=== PATIENT | male | born 1945 | race Caucasian/White ===

== ENCOUNTER 2016-10-27 16:18 | Inpatient (IN) | payer BC, MEDICARE ==
[2016-10-27] MEDS ORDERED: HEPARIN SODIUM,PORCINE/D5W PMX 25,000 UNIT in DEXTROSE/WATER 1 500ML.BAG IV ONE (16:28)
[2016-10-27] MEDS ORDERED: DILTIAZEM 125 MG in SODIUM CHLORIDE 0.9% 100 ML IV ONE (16:28)
--- NOTE | 2016-10-27 16:56 | ED ---
Arrhythmia/Palpitations HPI - General Chief Complaint: Arrhythmia/Palpitations Stated Complaint: afib, transfer anupama moore Time Seen by Provider: 10/27/16 16:27 Source: patient Mode of arrival: EMS Limitations: no limitations - History of Present Illness Initial Comments: This is a 71-year-old male with a history of chronic alcohol use and strong family history for CAD who presents to the department for an episode of nausea, lightheadedness, and chest tightness. He states that he was in his car when it occurred. He went to [facility] emergency department who evaluated him and found to be in atrial fibrillation with RVR. He was started on Cardizem and heparin area he was sent here for higher level of care. The patient denies a history of heart disease. He does state that he had 2 brothers to from heart attacks under the age of 50. He states that he currently feels back to normal. No lightheadedness or chest pain currently. No other complaints. The patient does of note drink one pint of alcohol a day. - Related Data Home Medications Medication Instructions Recorded Confirmed Ascorbic Acid [Vitamin C] 1,000 mg PO DAILY 10/19/14 10/27/16 Esomeprazole Magnesium [NexIUM] 40 mg PO DAILY 10/19/14 10/27/16 Gabapentin [Neurontin] 300 mg PO BID 10/19/14 10/27/16 Multivitamin [Men's Multi-Vitamin] 1 tab PO DAILY 10/19/14 10/27/16 DULoxetine HCL [Cymbalta] 60 mg PO DAILY 10/27/16 10/27/16 Diazepam [Valium] 2 mg PO Q6H PRN 10/27/16 10/27/16 Polyethylene Glycol 3350 [Miralax] 17 gm PO DAILY 10/27/16 10/27/16 Seroquel (Unknown Dose) 1 tab PO HS 10/27/16 10/27/16 Allergies Allergy/AdvReac Type Severity Reaction Status Date / Time No Known Allergies Allergy Verified 10/27/16 16:43 Review of Systems ROS Statement: Those systems with pertinent positive or pertinent negative responses have been documented in the HPI. ROS Other: All systems not noted in ROS Statement are negative. Past Medical History Past Medical History: GERD/Reflux, Neurologic Disorder, Osteoarthritis (OA), Pneumonia, Prostate Disorder Additional Past Medical History / Comment(s): neuropathy, BLEDDING ULCER IN PAST ,ALCOHOL ABUSE/PAST DT'S History of Any Multi-Drug Resistant Organisms: None Reported Past Surgical History: Back Surgery, Orthopedic Surgery Additional Past Surgical History / Comment(s): pain procedures, neck, back and shoulder surg. many complications after surgery -(surgury itself went well . afterwards - SEPSIS E. Coli in blood, urine and sputum; family stated pt ended up on vent. transferred to [facility] ICU Past Anesthesia/Blood Transfusion Reactions: No Reported Reaction Additional Past Anesthesia/Blood Transfusion Reaction / Comment(s): blood transfusion -no reactions to it Past Psychological History: Anxiety, Depression Smoking Status: Former smoker Past Alcohol Use History: Abuse, Daily Past Drug Use History: None Reported - Past Family History Brother(s) Family Medical History: Myocardial Infarction ([place]) Additional Family Medical History / Comment(s): 2 btothers from mi's Mother Family Medical History: Diabetes Mellitus Additional Family Medical History / Comment(s): controlled diabetic Father Family Medical History: Myocardial Infarction ([place]), Sleep Apnea/CPAP/BIPAP General Exam - General Exam Comments Initial Comments: Constitutional: Awake alert Appears comfortable Head: Normocephalic atraumatic Eyes: no conjunctival injection No scleral icterus EOMI Neck: No JVD Supple Heart: Regular rate rhythm normal S1-S2 no murmurs Lungs: Clear to auscultation bilaterally No wheezing No rales Abdomen: Soft nondistended nontender Extremities: Non edematous DP pulses intact Radial pulses intact Neuro: A&Ox3 No focal neurologic deficits Psych: Appropriate mood and affect Limitations: no limitations Course Vital Signs 10/27/16 16:22 Temperature 97.1 F L Pulse Rate 79 Respiratory 18 Rate Blood Pressure 109/74 O2 Sat by Pulse 98 Oximetry EKG Findings - EKG Comments: EKG Findings:: EKG showing normal sinus rhythm with a rate of 73. No abnormal ST segment changes or T-wave inversions. QTC 416. Other intervals normal. No ectopy. Medical Decision Making - Medical Decision Making This is a 71-year-old male who is transferred to the ER for A. fib RVR. The patient spontaneously converted. We'll keep him on heparin drip. He does have a strong family history for CAD so I like to be evaluated for this. I suspect that the etiology of his atrial tachycardia is from his alcohol use. Dr. Arredondo accepts the admission. The patient is currently stable for transfer to the floor. Disposition Clinical Impression: Atrial flutter, Unstable angina Disposition: ADMITTED IP TO THIS HOSP Condition: Stable Referrals: Vishnu Blackwell MD [Primary Care Provider] - 1-2 days
[2016-10-27] MEDS ORDERED: NITROGLYCERIN SL TABS 0.4 MG TAB SUBLINGUAL PRN (17:00)
[2016-10-27] MEDS ORDERED: LORazepam 2 MG/ML SYRINGE IV PRN ×3 (17:03)
[2016-10-27] MEDS ORDERED: THIAMINE 100 MG/ML 2 ML VIAL IM STA (17:03)
[2016-10-27] MEDS ORDERED: HEPARIN SODIUM,PORCINE/D5W PMX 25,000 UNIT in DEXTROSE/WATER 1 500ML.BAG IV SCH (17:30)
[2016-10-27 20:44] LABS: Creatine Kinase MB 0.7 ng/mL (0.0-2.4); Troponin I <0.012 ng/mL (0.000-0.034)
[2016-10-27 20:55] VITALS: BMI 24.3
[2016-10-27] MEDS: MELATONIN 5 MG TABLET PO SCH (22:08)
[2016-10-27] MEDS: QUEtiapine 25 MG TAB PO SCH (22:08)
[2016-10-28 02:14] LABS: Creatine Kinase 91 U/L (55-170)
[2016-10-28 02:17] LABS: Cholesterol 156 mg/dL (<200); HDL Cholesterol 80 mg/dL (40-60)
[2016-10-28 02:26] LABS: Creatine Kinase MB 0.6 ng/mL (0.0-2.4); Troponin I <0.012 ng/mL (0.000-0.034)
[2016-10-28 08:09] LABS: Creatine Kinase 75 U/L (55-170)
[2016-10-28 08:21] LABS: Creatine Kinase MB 0.6 ng/mL (0.0-2.4); Troponin I <0.012 ng/mL (0.000-0.034)
[2016-10-28] MEDS ORDERED: ASPIRIN 325 MG TAB PO SCH (09:00)
--- NOTE | 2016-10-28 09:04 | P.CRDCN ---
History of Present Illness Consult date: 10/28/16 Requesting physician: Janeth Downing Consult reason: chest pain Chief complaint: Dizziness and chest pain History of present illness: This is a 71-year-old gentleman with no prior documented history of hypertension, no diabetes, no hyperlipidemia, prior history of smoking, strong family history of premature coronary artery disease, EtOH use, patient states he drinks approximately a pint of alcohol a day and has done so for several years, he underwent a cardiac catheterization in September 2015 which did not reveal any obstructive coronary artery disease. Patient was on vacation up [place], states that he had driven approximately a 2-1/2 hours when he developed a midsternal chest discomfort which he describes as a pressure sensation that radiated across his chest, patient states that he then became extremely dizzy and his vision became unclear, he was mildly short of breath. Denies any diaphoresis or nausea. He pulled over to the side of the road, his and drove car and went directly to [facility]. Ekg performed on admission there showed a supraventricular tachycardia with a heart rate of 150. Blood pressure on arrival there 108/82, oxygen saturation 98% on room air. Troponin negative. CBC normal. Potassium 3.9, BUN 22, creatinine 1.0. EKG performed on arrival here showed a normal sinus rhythm with no acute changes. Troponins negative 3. Blood pressure 101/60 heart rate in the 70s temperature 97.1. At the time of my examination this morning, patient denies any chest discomfort, states he has mild dizziness when he takes a deep breath otherwise asymptomatic. Past Medical History Past Medical History: GERD/Reflux, Neurologic Disorder, Osteoarthritis (OA), Pneumonia, Prostate Disorder Additional Past Medical History / Comment(s): neuropathy, BLEEDING ULCER IN PAST ,ALCOHOL ABUSE/PAST DT'S History of Any Multi-Drug Resistant Organisms: None Reported Past Surgical History: Back Surgery, Orthopedic Surgery Additional Past Surgical History / Comment(s): pain procedures, neck, back and shoulder surg. many complications after surgery -(surgury itself went well . afterwards - SEPSIS E. Coli in blood, urine and sputum; family stated pt ended up on vent. transferred to [facility] ICU Past Anesthesia/Blood Transfusion Reactions: No Reported Reaction Additional Past Anesthesia/Blood Transfusion Reaction / Comment(s): blood transfusion -no reactions to it Past Psychological History: Anxiety, Depression Smoking Status: Former smoker Past Alcohol Use History: Abuse, Daily Additional Past Alcohol Use History / Comment(s): Quit smoking 30 yrs. ago. Smoked 1 PPD.admits to drinking a pint of vodka per day. Past Drug Use History: None Reported - Past Family History Brother(s) Family Medical History: Myocardial Infarction ([place]) Additional Family Medical History / Comment(s): 2 btothers from mi's Mother Family Medical History: Diabetes Mellitus Additional Family Medical History / Comment(s): controlled diabetic Father Family Medical History: Myocardial Infarction ([place]), Sleep Apnea/CPAP/BIPAP Medications and Allergies Home Medications Medication Instructions Recorded Confirmed Type Ascorbic Acid [Vitamin C] 1,000 mg PO DAILY 10/19/14 10/27/16 History Esomeprazole Magnesium [NexIUM] 40 mg PO DAILY 10/19/14 10/27/16 History Gabapentin [Neurontin] 300 mg PO TID 10/19/14 10/27/16 History Multivitamin [Men's Multi-Vitamin] 1 tab PO DAILY 10/19/14 10/27/16 History DULoxetine HCL [Cymbalta] 60 mg PO DAILY 10/27/16 10/27/16 History Diazepam [Valium] 2 mg PO Q6H PRN 10/27/16 10/27/16 History Naproxen 500 mg PO BID 10/27/16 10/27/16 History Polyethylene Glycol 3350 [Miralax] 17 gm PO DAILY 10/27/16 10/27/16 History QUEtiapine [SEROquel] 25 mg PO HS 10/27/16 10/27/16 History Allergies Allergy/AdvReac Type Severity Reaction Status Date / Time No Known Allergies Allergy Verified 10/27/16 16:43 Physical Exam Vitals: Vital Signs Temp Pulse Pulse Resp BP BP Pulse Ox 10/28/16 08:00 97.1 F L 72 18 101/64 98 10/28/16 04:00 96.5 F L 66 18 93/58 97 10/28/16 00:00 97.2 F L 72 18 92/59 100 10/27/16 20:44 96.8 F L 98 18 105/65 100 10/27/16 18:22 98.3 F 70 16 95/60 98 10/27/16 17:48 98.3 F 70 16 98/58 98 10/27/16 17:46 98.1 F 69 18 93/58 97 10/27/16 17:00 99 F 72 20 95/61 98 10/27/16 16:22 97.1 F L 79 18 109/74 98 Intake and Output 10/27/16 10/28/16 10/28/16 22:59 06:59 14:59 Intake Total 0.5 128 Balance 0.5 128 Intake: IV 128 Heparin Sodium,Porcine/ 128 D5w Pmx 25,000 unit In Dextrose/Water 1 500ml. bag @ 12 UNITS/KG/HR 16. 32 mls/hr IV .Q24H JAD[facility] Rx #:[id number] Intake, IV Titration 0.5 Amount Diltiazem 125 mg In 0.5 Sodium Chloride 0.9% 100 ml @ 10 MG/HR 10 mls/hr IV .[id number] ONE Rx#: [id number] Other: Voiding Method Toilet Toilet # Voids 2 Weight 70.307 kg 73.6 kg PHYSICAL EXAMINATION: HEENT: [Head is atraumatic, normocephalic. Pupils equal, round. Neck is supple. There is no elevated jugular venous pressure.] HEART EXAMINATION: [Heart S1, S2 normal. No murmur or gallop heard.] CHEST EXAMINATION:[ Lungs are clear to auscultation and precussion. No chest wall tenderness is noted on palpation or with deep breathing.] ABDOMEN: [ Soft, nontender. Bowel sounds are heard. No organomegaly noted]. EXTREMITIES:[ 2+ peripheral pulses with no evidence of peripheral edema and no calf tenderness noted]. NEUROLOGIC [patient is awake, alert and oriented -3.] . Results Cardiac Enzymes 10/27/16 10/28/16 10/28/16 Range/Units 19:53 01:39 07:08 CK-MB (CK-2) 0.7 0.6 0.6 (0.0-2.4) ng/mL Troponin I <0.012 <0.012 <0.012 (0.000-0.034) ng/mL Coagulation 10/27/16 10/28/16 Range/Units 19:53 07:08 APTT 51.4 H 46.5 H (22.0-30.0) sec Lipids 10/28/16 Range/Units 01:39 Triglycerides 50 (<150) mg/dL Cholesterol 156 (<200) mg/dL HDL Cholesterol 80 H (40-60) mg/dL Current Medications Generic Name Dose Route Start Last Admin Trade Name Rosa PRN Reason Stop Dose Admin Aspirin 325 mg 10/28/16 09:00 Aspirin PO DAILY JADEN Heparin Sodium/Dextrose 25,000 500 mls @ 16.32 mls/hr 10/27/16 17:30 20:38 unit/ IV Solution IV 12 units/kg/hr .Q24H JADEN 16.32 mls/hr Protocol Administration 12 UNITS/KG/HR Lorazepam 1 mg 10/27/16 17:03 Ativan IV Q2HR PRN CIWA 8 or 9 Lorazepam 1 mg 10/27/16 17:03 Ativan IV Q1HR PRN CIWA 10 to 15 Lorazepam 2 mg 10/27/16 17:03 Ativan IV 10/29/16 17:03 Q10M PRN CIWA 16 or higher Melatonin 5 mg 10/27/16 21:30 10/27/16 22:08 Melatonin PO 5 mg HS JADEN Administration Nitroglycerin 0.4 mg 10/27/16 17:00 Nitrostat SUBLINGUAL Q5M PRN Chest Pain Quetiapine Fumarate 25 mg 10/27/16 21:30 10/27/16 22:08 Seroquel PO 25 mg HS JADEN Administration Thiamine HCl 100 mg 10/28/16 12:00 Vitamin B-1 PO BID@1200,1700 JADEN Intake and Output 10/27/16 10/28/16 10/28/16 22:59 06:59 14:59 Intake Total 0.5 128 Balance 0.5 128 Intake: IV 128 Heparin Sodium,Porcine/ 128 D5w Pmx 25,000 unit In Dextrose/Water 1 500ml. bag @ 12 UNITS/KG/HR 16. 32 mls/hr IV .Q24H [facility] Rx #:[id number] Intake, IV Titration 0.5 Amount Diltiazem 125 mg In 0.5 Sodium Chloride 0.9% 100 ml @ 10 MG/HR 10 mls/hr IV .[id number] ONE Rx#: [id number] Other: Voiding Method Toilet Toilet # Voids 2 Weight 70.307 kg 73.6 kg EKG Interpretations (text) Initial EKG showed a supraventricular tachycardia with a heart rate in the 140s to 150s. EKG this morning shows normal sinus rhythm with no acute changes. Assessment and Plan Plan: Assessment and plan #1 symptoms of chest discomfort with associated dizziness, atypical for acute coronary syndrome. Cardiac catheterization performed one year ago did not reveal any obstructive coronary artery disease. Troponins negative 4. #2 supraventricular tachycardia, patient now in normal sinus rhythm. #3 EtOH use, patient drinks 1 pint of alcohol per day. #4 strong family history of premature coronary artery disease in his brothers. #5 cardiac risk factors negative for hypertension, no diabetes, no hyperlipidemia. Plan We will obtain an echocardiogram with Doppler study. We will also request a free T4 and TSH level be obtained. We will also get a d-dimer and magnesium level. Obtain fasting lipid profile. Further recommendations will be based on these findings and patient's clinical course. DNP note has been reviewed, I agree with a documented findings and plan of care. Patient was seen and examined.
--- NOTE | 2016-10-28 10:51 | P.HPIM ---
History of Present Illness H&P Date: 10/28/16 Chief Complaint: chest pain/SVT. This is a 71-year-old gentleman one of Dr. Blackwell with no prior documented history of hypertension, no diabetes, no hyperlipidemia, prior history of smoking, strong family history of premature coronary artery disease, EtOH use, patient states he drinks approximately a pint of alcohol a day and has done so for several years, he underwent a cardiac catheterization in September 2015 which did not reveal any obstructive coronary artery disease. Patient was on vacation up [place], states that he had driven approximately a 2-1/2 hours when he developed a midsternal chest discomfort which he describes as a pressure sensation that radiated across his chest, patient states that he then became extremely dizzy and his vision became unclear, he was mildly short of breath. Denies any diaphoresis or nausea. He pulled over to the side of the road, his and drove car and went directly to [facility]. Ekg performed on admission there showed a supraventricular tachycardia with a heart rate of 150. Blood pressure on arrival there 108/82, oxygen saturation 98% on room air. Troponin negative. CBC normal. Potassium 3.9, BUN 22, creatinine 1.0. EKG performed on arrival here showed a normal sinus rhythm with no acute changes. Troponins negative 3. Review of Systems Constitutional: Denies anorexia, Denies chronic headaches, Denies fever, Denies lethargy, Denies weight gain, Denies weight loss Eyes: denies blurred vision, denies bulging eye, denies decreased vision, denies diplopia Ears: deny: decreased hearing Ears, nose, mouth and throat: Denies dysphagia, Denies neck lump, Denies swelling in throat, Denies sore throat, Denies vertigo, Denies voice changes Cardiovascular: Reports chest pain, Reports decreased exercise tolerance, Reports shortness of breath, Denies high blood pressure, Denies irregular heart beat, Denies paroxysmal nocturnal dyspnea, Denies rapid heart beat, Denies syncope Respiratory: Denies congestion, Denies cough, Denies cough with sputum, Denies home oxygen, Denies sleep apnea, Denies snoring, Denies wheezing Gastrointestinal: Denies abdominal pain, Denies bloating, Denies BRBPR, Denies early satiety, Denies loss of appetite, Denies melena, Denies nausea, Denies vomiting Genitourinary: Denies dysuria, Denies nocturia, Denies polyuria Musculoskeletal: Denies myalgias Musculoskeletal: absent: ankle pain, ankle stiffness, ankle swelling, elbow pain , elbow stiffness, elbow swelling, foot pain, foot stiffness, foot swelling, hand pain, hand stiffness, hand swelling, hip pain, hip stiffness, hip swelling , knee pain, knee stiffness, knee swelling, shoulder pain, shoulder stiffness, shoulder swelling, wrist pain, wrist stiffness, wrist swelling Integumentary: Denies pruritus, Denies rash Neurological: Denies numbness, Denies weakness Psychiatric: Denies anxiety, Denies depression Endocrine: Denies fatigue, Denies weight change Past Medical History Past Medical History: GERD/Reflux, Hyperlipidemia, Neurologic Disorder, Osteoarthritis (OA), Pneumonia, Prostate Disorder Additional Past Medical History / Comment(s): neuropathy, BLEEDING ULCER IN PAST ,ALCOHOL ABUSE/PAST DT'S History of Any Multi-Drug Resistant Organisms: None Reported Past Surgical History: Back Surgery, Orthopedic Surgery Additional Past Surgical History / Comment(s): pain procedures, neck, back and shoulder surg. many complications after surgery -(surgury itself went well . afterwards - SEPSIS E. Coli in blood, urine and sputum; family stated pt ended up on vent. transferred to [facility] ICU Past Anesthesia/Blood Transfusion Reactions: No Reported Reaction Additional Past Anesthesia/Blood Transfusion Reaction / Comment(s): blood transfusion -no reactions to it Past Psychological History: Anxiety, Depression Smoking Status: Former smoker Past Alcohol Use History: Abuse, Daily Additional Past Alcohol Use History / Comment(s): Quit smoking 30 yrs. ago. Smoked 1 PPD.admits to drinking a pint of vodka per day. Past Drug Use History: None Reported - Past Family History Brother(s) Family Medical History: Myocardial Infarction ([place]) Additional Family Medical History / Comment(s): 2 btothers from mi's Mother Family Medical History: Diabetes Mellitus (mother at age of 96 and she had diabetes mellitus type 2.) Additional Family Medical History / Comment(s): controlled diabetic Father Family Medical History: Myocardial Infarction ([place]) (father in his early 60s from [place] Sleep Apnea/CPAP/BIPAP Son(s) Family Medical History: No Reported History (patient has one son no major medical problems.) Daughter(s) Family Medical History: No Reported History (patient has 3 daughters no major medical problems.) Medications and Allergies Home Medications Medication Instructions Recorded Confirmed Type Ascorbic Acid [Vitamin C] 1,000 mg PO DAILY 10/19/14 10/27/16 History Esomeprazole Magnesium [NexIUM] 40 mg PO DAILY 10/19/14 10/27/16 History Gabapentin [Neurontin] 300 mg PO TID 10/19/14 10/27/16 History Multivitamin [Men's Multi-Vitamin] 1 tab PO DAILY 10/19/14 10/27/16 History DULoxetine HCL [Cymbalta] 60 mg PO DAILY 10/27/16 10/27/16 History Diazepam [Valium] 2 mg PO Q6H PRN 10/27/16 10/27/16 History Naproxen 500 mg PO BID 10/27/16 10/27/16 History Polyethylene Glycol 3350 [Miralax] 17 gm PO DAILY 10/27/16 10/27/16 History QUEtiapine [SEROquel] 25 mg PO HS 10/27/16 10/27/16 History Allergies Allergy/AdvReac Type Severity Reaction Status Date / Time No Known Allergies Allergy Verified 10/27/16 16:43 Physical Exam Vitals: Vital Signs Temp Pulse Pulse Resp BP BP Pulse Ox 10/28/16 08:00 97.1 F L 72 18 101/64 98 10/28/16 04:00 96.5 F L 66 18 93/58 97 10/28/16 00:00 97.2 F L 72 18 92/59 100 10/27/16 20:44 96.8 F L 98 18 105/65 100 10/27/16 18:22 98.3 F 70 16 95/60 98 10/27/16 17:48 98.3 F 70 16 98/58 98 10/27/16 17:46 98.1 F 69 18 93/58 97 10/27/16 17:00 99 F 72 20 95/61 98 10/27/16 16:22 97.1 F L 79 18 109/74 98 Intake and Output 10/27/16 10/28/16 10/28/16 22:59 06:59 14:59 Intake Total 0.5 128 Balance 0.5 128 Intake: IV 128 Heparin Sodium,Porcine/ 128 D5w Pmx 25,000 unit In Dextrose/Water 1 500ml. bag @ 12 UNITS/KG/HR 16. 32 mls/hr IV .Q24H [facility] Rx #:[id number] Intake, IV Titration 0.5 Amount Diltiazem 125 mg In 0.5 Sodium Chloride 0.9% 100 ml @ 10 MG/HR 10 mls/hr IV .[id number] ONE Rx#: [id number] Other: Voiding Method Toilet Toilet # Voids 2 Weight 70.307 kg 73.6 kg - Constitutional General appearance: average body habitus, no acute distress - EENT Eyes: anicteric sclerae, EOMI, PERRLA, no ptosis, no scleral icterus, no normal appearance ENT: hearing grossly normal, NA/AT, normal oropharynx, no thrush Ears: bilateral: normal - Neck Neck: no lymphadenopathy, normal ROM, no rigidity, no stridor, no thyromegaly Carotids: bilateral: upstroke normal Thyroid: bilateral: normal size - Respiratory Respiratory: bilateral: diminished, negative: dullness, rales, rhonchi, wheezing , prolonged expiration - Cardiovascular Rhythm: regular Heart sounds: normal: S1, S2 Abnormal Heart Sounds: systolic murmur, no S3 Gallop, no S4 Gallop, no click - Gastrointestinal General gastrointestinal: normal bowel sounds, soft, no splenomegaly, no tenderness, no umbilical hernia, no ventral hernia - Integumentary Integumentary: normal, normal turgor - Neurologic Neurologic: CNII-XII intact - Musculoskeletal Musculoskeletal: gait normal, strength equal bilaterally - Psychiatric Psychiatric: A&O x's 3, appropriate affect, intact judgment & insight Results Labs: Abnormal Lab Results - Last 24 Hours (Table) 10/27/16 10/28/16 10/28/16 Range/Units 19:53 01:39 07:08 APTT 51.4 H 46.5 H (22.0-30.0) sec HDL Cholesterol 80 H (40-60) mg/dL Thrombosis Risk Factor Assmnt - DVT/VTE Prophylaxis DVT/VTE Prophylaxis: Pharmacologic Prophylaxis ordered, Mechanical Prophylaxis ordered - Choose All That Apply Each Risk Factor Represents 2 Points: Age 61-74 years Thrombosis Risk Factor Assessment Total Risk Factor Score: 2 Thrombosis Risk Factor Assessment Level: Low Risk Assessment and Plan Plan: Assessment and plan: 1. Chest pain does not appear to be cardiac, this is was triggered with supraventricular tachycardia episode, patient was admitted to the hospital his currently on heparin drip this would be discontinued, patient would be seen in consultation by Neurology, echocardiogram will be done for evaluation of LV function, patient underwent left heart catheterization September 2015 that showed no evidence of coronary artery disease. 2. History of septic shock due to E. coli in the past post spinal surgery with a prolonged hospital stay at [facility]. 3. Chronic alcohol use and dependence. The patient drinks about a pint a daily basis for a long time and he has gone through DTs in the past. We will monitor the patient for delirium tremens, he will be placed on CIWA protocol. 4. GERD with esophagitis and a prior history of peptic ulcer disease. Continue Nexium 40 mg orally once every day. 5. Alcohol-induced neuropathy. Continue gabapentin 300 mg orally 3 times every day. 6. Insomnia. Continue Seroquel 25 mg at bedtime. 7. Constipation. Continue MiraLAX 17 g in 8 ounces water once every day. 8. DVT prophylaxis. Discontinue heparin drip, start the patient Lovenox 40 mg subcutaneously every 24 hours. 9. GI prophylaxis. Currently on PPI. 10. Admitted to inpatient. Estimate a length of stay 2 midnights. 11. Patient is full code.
[2016-10-28] MEDS: THIAMINE 100 MG TAB PO SCH ×2 (11:55→18:39)
--- NOTE | 2016-10-28 15:25 | ECHOF ---
Referral Reason:chest pain MEASUREMENTS -------- HEIGHT: 170.2 cm WEIGHT: 73.5 kg BP: 120/40 IVSd: 1.3 cm (0.6 - 1.1) LVIDd: 3.3 cm (3.9 - 5.3) LVPWd: 0.8 cm (0.6 - 1.1) IVSs: 1.5 cm LVIDs: 2.9 cm LVPWs: 1.0 cm LA Diam: 3.3 cm (2.7 - 3.8) Ao Diam: 3.5 cm (2.0 - 3.7) AV Cusp: 1.9 cm (1.5 - 2.6) LA Diam: 3.3 cm (2.7 - 3.8) MV EXCURSION: 21.150 mm (> 18.000) MV EF SLOPE: 66 mm/s (70 - 150) EPSS: 0.2 cm MV E Dioni: 0.65 m/s MV DecT: 159 ms MV A Dioni: 0.60 m/s MV E/A Ratio: 1.09 RAP: 5.00 mmHg RVSP: 14.10 mmHg FINDINGS -------- Undetermined rhythm. There is mild concentric left ventricular hypertrophy. Overall left ventricular systolic function is normal with, an EF between 55 - 60 %. The right ventricle is normal in size. The left atrial size is normal. The right atrial size is normal. Lumason was given for the enhancement of images. There is mild aortic valve sclerosis. There is no evidence of aortic regurgitation. Mild mitral annular calcification present. Mild mitral regurgitation is present. Mild tricuspid regurgitation present. There is no evidence of pulmonary hypertension. The right ventricular systolic pressure, as measured by Doppler, is 14.10mmHg. There is no pulmonic regurgitation present. The aortic root size is normal. There is no pericardial effusion. CONCLUSIONS -------- 1. There is mild concentric left ventricular hypertrophy. 2. There is no pulmonic regurgitation present. 3. The aortic root size is normal. 4. There is no pericardial effusion. 5. Overall left ventricular systolic function is normal with, an EF between 55 - 60 %. 6. Lumason was given for the enhancement of images. 7. There is mild aortic valve sclerosis. 8. Mild mitral annular calcification present. 9. Mild mitral regurgitation is present. 10. Mild tricuspid regurgitation present. 11. There is no evidence of pulmonary hypertension. 12. The right ventricular systolic pressure, as measured by Doppler, is 14.10mmHg. [employer]: Teressa Mas RDCS
[2016-10-28] MEDS: METOPROLOL TARTRATE 12.5 MG TAB PO SCH (20:51)
[2016-10-28] MEDS: MELATONIN 5 MG TABLET PO SCH (20:51)
[2016-10-28] MEDS: QUEtiapine 25 MG TAB PO SCH (20:51)
[2016-10-29 04:50] VITALS: TEMP 96.8
[2016-10-29] MEDS: METOPROLOL TARTRATE 12.5 MG TAB PO SCH (08:09)
[2016-10-29 08:14] VITALS: BP 104/68; PULSE 69; RESP 16
[2016-10-29] MEDS ORDERED: ASPIRIN 81 MG PO SCH (09:00)
[2016-10-29 09:28] LABS: Basophils % (A) 1 %; CH 32.8; CHCM 32.8; Eosinophils # (A) 0.5 k/uL (0-0.7); Eosinophils % (A) 10 %; HCT 40.3 % (39.0-53.0); HDW 2.24; HGB 13.7 gm/dL (13.0-17.5); Luc # (Auto) 0.13; Luc % (Auto) 3; Lymphocytes # (A) 1.5 k/uL (1.0-4.8); Lymphocytes % (A) 29 %; MCH 34.1 pg (25.0-35.0); MCHC 33.9 g/dL (31.0-37.0); MCV 100.5 fL (80.0-100.0); Mean Platelet Volume 7.4; Monocytes # (A) 0.5 k/uL (0-1.0); Monocytes % (A) 10 %; Neutrophils # (A) 2.4 k/uL (1.3-7.7); Neutrophils % (A) 47 %; RBC 4.01 m/uL (4.30-5.90); RDW 12.8 % (11.5-15.5); WBC (Perox) 5.17
[2016-10-29 09:37] LABS: ALT 22 U/L (21-72); AST 23 U/L (17-59); Alkaline Phosphatase 49 U/L (38-126); Anion Gap 7 mmol/L; Blood Urea Nitrogen 17 mg/dL (9-20); Calcium 8.9 mg/dL (8.4-10.2); Carbon Dioxide 25 mmol/L (22-30); Chloride 109 mmol/L (98-107); Glucose 81 mg/dL (74-99); Non-African American GFR(MDRD) >60 (>60 ml/min/1.73 sqM); Potassium 4.3 mmol/L (3.5-5.1); Sodium 141 mmol/L (137-145); Total Bilirubin 0.5 mg/dL (0.2-1.3); Total Protein 6.2 g/dL (6.3-8.2)
--- NOTE | 2016-10-29 10:08 | P.PN ---
Subjective Principal diagnosis: Dizziness and chest pain This is a 71-year-old gentleman with no prior documented history of hypertension, no diabetes, no hyperlipidemia, prior history of smoking, strong family history of premature coronary artery disease, EtOH use, patient states he drinks approximately a pint of alcohol a day and has done so for several years, he underwent a cardiac catheterization in September 2015 which did not reveal any obstructive coronary artery disease. Patient was on vacation up [place], states that he had driven approximately a 2-1/2 hours when he developed a midsternal chest discomfort which he describes as a pressure sensation that radiated across his chest, patient states that he then became extremely dizzy and his vision became unclear, he was mildly short of breath. Denies any diaphoresis or nausea. He pulled over to the side of the road, his and drove car and went directly to [facility]. Ekg performed on admission there showed a supraventricular tachycardia with a heart rate of 150. Blood pressure on arrival there 108/82, oxygen saturation 98% on room air. Troponin negative. CBC normal. Potassium 3.9, BUN 22, creatinine 1.0. EKG performed on arrival here showed a normal sinus rhythm with no acute changes. Troponins negative 3. Blood pressure 101/60 heart rate in the 70s temperature 97.1. At the time of my examination this morning, patient denies any chest discomfort, states he has mild dizziness when he takes a deep breath otherwise asymptomatic. 10/29/2016 Patient seen and examined this morning, feeling well, denies any dizziness, no chest discomfort, no shortness of breath. No further arrhythmias noted on the monitor. Blood pressure 104/68, heart rate in the 60s. CBC normal. Potassium 4.3, BUN 17, creatinine 0.9. Troponins negative 3. TSH 1.9, free T4 1 0.07. D-dimer 0.5. Patient may be able to be discharged home today from cardiology's perspective, we will make him a follow-up appointment with Dr. VC Joyce in the office. He's also been recommended to wear Holter monitor on discharge. Objective - Vital Signs Vital signs: Vital Signs Temp 96.8 F L 10/29/16 08:00 Pulse 69 10/29/16 08:00 Resp 16 10/29/16 08:00 BP 104/68 10/29/16 08:00 Pulse Ox 97 10/29/16 08:00 Intake & Output 10/28/16 10/29/16 10/29/16 18:59 06:59 18:59 Intake Total 20 Balance 20 Weight 72.6 kg Intake: IV 20 Flush 20 Other: Voiding Method Toilet # Voids 2 1 - Exam PHYSICAL EXAMINATION: HEENT: Head is atraumatic, normocephalic. Pupils equal, round. Neck is supple. There is no elevated jugular venous pressure. HEART EXAMINATION: Heart S1, S2 normal. No murmur or gallop heard. CHEST EXAMINATION: Lungs are clear to auscultation and precussion. No chest wall tenderness is noted on palpation or with deep breathing. ABDOMEN: Soft, nontender. Bowel sounds are heard. No organomegaly noted. EXTREMITIES: 2+ peripheral pulses with no evidence of peripheral edema and no calf tenderness noted. NEUROLOGIC patient is awake, alert and oriented -3. . - Labs CBC & Chem 7: 10/29/16 05:21 10/29/16 05:21 Labs: Abnormal Lab Results - Last 24 Hours (Table) 10/29/16 10/29/16 Range/Units 05:21 05:21 RBC 4.01 L (4.30-5.90) m/uL MCV 100.5 H (80.0-100.0) fL Chloride 109 H (98-107) mmol/L Total Protein 6.2 L (6.3-8.2) g/dL Albumin 3.4 L (3.5-5.0) g/dL Assessment and Plan Plan: Assessment and plan #1 symptoms of chest discomfort with associated dizziness, atypical for acute coronary syndrome. Cardiac catheterization performed one year ago did not reveal any obstructive coronary artery disease. Troponins negative 4. #2 supraventricular tachycardia, patient now in normal sinus rhythm. #3 EtOH use, patient drinks 1 pint of alcohol per day. #4 strong family history of premature coronary artery disease in his brothers. #5 cardiac risk factors negative for hypertension, no diabetes, no hyperlipidemia. Plan Echocardiogram with Doppler study was performed which revealed a normal left ventricular systolic function. TSH normal, d-dimer negative. No further episodes of supraventricular tachycardia noted. From cardiology's perspective, patient may be able to be discharged home today, we'll make a follow-up appointment with Dr. VC Joyce in the office post discharge. Patient has also been advised strongly regarding EtOH cessation. 24-hour Holter monitor as an outpatient. Continue Lopressor 12-1/2 mg one tablet by mouth twice a day. DNP note has been reviewed, I agree with a documented findings and plan of care. Patient was seen and examined.
--- NOTE | 2016-10-29 14:08 | P.DS ---
Providers Date of admission: 10/27/16 17:00 Expected date of discharge: 10/29/16 Attending physician: Janeth Downing Consults: 10/27/16 17:00 Consult Physician Urgent Consulting Provider: [facility] Consult Reason/Comments: Chest Pain/New Atrial Flutter Do you want consulting provider notified?: Yes Primary care physician: [facility] Course: This is a 71-year-old gentleman one of Dr. Blackwell with no prior documented history of hypertension, no diabetes, no hyperlipidemia, prior history of smoking, strong family history of premature coronary artery disease, EtOH use, patient states he drinks approximately a pint of alcohol a day and has done so for several years, he underwent a cardiac catheterization in September 2015 which did not reveal any obstructive coronary artery disease. Patient was on vacation up [place], states that he had driven approximately a 2-1/2 hours when he developed a midsternal chest discomfort which he describes as a pressure sensation that radiated across his chest, patient states that he then became extremely dizzy and his vision became unclear, he was mildly short of breath. Denies any diaphoresis or nausea. He pulled over to the side of the road, his and drove car and went directly to [facility]. Ekg performed on admission there showed a supraventricular tachycardia with a heart rate of 150. Blood pressure on arrival there 108/82, oxygen saturation 98% on room air. Troponin negative. CBC normal. Potassium 3.9, BUN 22, creatinine 1.0. EKG performed on arrival here showed a normal sinus rhythm with no acute changes. Troponins negative 3. 10/29: Patient denies any further episodes of chest pain. He has not had any further episodes of supraventricular tachycardia, he remains in sinus rhythm. Cardiac enzymes have been negative. Echocardiogram with Doppler study revealed normal left ventricular systolic function. Cardiology recommends 24-hour Holter monitor as outpatient. He was advised strongly regarding alcohol cessation. Discharge Diagnoses: 1. supraventricular tachycardia 2. chest pain 3. History of septic shock due to E. coli 4. Chronic alcohol use and dependence. 5. GERD with esophagitis and a prior history of peptic ulcer disease. 6. Alcohol-induced neuropathy. 7. Insomnia. 8. Constipation. The above impression and plan of care have been discussed and directed by signing physician. Jannet Travis nurse practitioner acting as scribe for signing physician. Patient Condition at Discharge: Stable Plan - Discharge Summary New Discharge Prescriptions: New Aspirin 81 mg PO DAILY Metoprolol Tartrate [Lopressor] 12.5 mg PO BID #60 tab Continue Ascorbic Acid [Vitamin C] 1,000 mg PO DAILY Gabapentin [Neurontin] 300 mg PO TID Esomeprazole Magnesium [NexIUM] 40 mg PO DAILY Multivitamin [Men's Multi-Vitamin] 1 tab PO DAILY Polyethylene Glycol 3350 [Miralax] 17 gm PO DAILY Diazepam [Valium] 2 mg PO Q6H PRN PRN Reason: Anxiety DULoxetine HCL [Cymbalta] 60 mg PO DAILY QUEtiapine [SEROquel] 25 mg PO HS Naproxen 500 mg PO BID Discharge Medication List Ascorbic Acid [Vitamin C] 1,000 mg PO DAILY 10/19/14 [History] Esomeprazole Magnesium [NexIUM] 40 mg PO DAILY 10/19/14 [History] Gabapentin [Neurontin] 300 mg PO TID 10/19/14 [History] Multivitamin [Men's Multi-Vitamin] 1 tab PO DAILY 10/19/14 [History] DULoxetine HCL [Cymbalta] 60 mg PO DAILY 10/27/16 [History] Diazepam [Valium] 2 mg PO Q6H PRN 10/27/16 [History] Naproxen 500 mg PO BID 10/27/16 [History] Polyethylene Glycol 3350 [Miralax] 17 gm PO DAILY 10/27/16 [History] QUEtiapine [SEROquel] 25 mg PO HS 10/27/16 [History] Aspirin 81 mg PO DAILY 10/29/16 [Rx] Metoprolol Tartrate [Lopressor] 12.5 mg PO BID #60 tab 10/29/16 [Rx] Follow up Appointment(s)/Referral(s): Vishnu Blackwell MD [Primary Care Provider] - 10/31/16 10:45 am (with nurse practitioner) Joanie Joyce MD [STAFF PHYSICIAN] - 11/14/16 3:00 pm (Please go to office tomorrow to be hooked up to holter monitor at 11am) Patient Instructions/Handouts: Supraventricular Tachycardia (DC), Holter Monitoring (DC) Discharge Disposition: HOME SELF-CARE
== END 2016-10-29 10:30 | disposition home or self-care (01) | DRG 310 ==
LOC: EC 16:18 → 6SEL 17:00
PROVIDERS: ADMIT Internal Medicine; ATTEND Internal Medicine
DX: I47.1 Supraventricular tachycardia (principal); G62.1 Alcoholic polyneuropathy; K21.0 Gastro-esophageal reflux disease with esophagitis; F10.20 Alcohol dependence, uncomplicated; G47.00 Insomnia, unspecified; K59.00 Constipation, unspecified; E78.5 Hyperlipidemia, unspecified; F32.9 Major depressive disorder, single episode, unspecified; M19.91 Primary osteoarthritis, unspecified site; F41.9 Anxiety disorder, unspecified; N42.9 Disorder of prostate, unspecified; Z79.1 Long term (current) use of non-steroidal anti-inflammatories (NSAID); Z79.899 Other long term (current) drug therapy; Z87.891 Personal history of nicotine dependence; Z87.11 Personal history of peptic ulcer disease; Z82.49 Family history of ischemic heart disease and other diseases of the circulatory system
CPT/HCPCS: 80053; 80061; 82550; 82553; 84439; 84443; 84484; 85025; 85379; 85730; 93005; 93306; 96365; 96368; 99285

== ENCOUNTER → 2016-11-22 | Outpatient (CLI) | payer BC, MEDICARE ==
[2016-11-22 09:07] LABS: Basophils % (A) 1 %; CH 34.1; Eosinophils # (A) 0.5 k/uL (0-0.7); Eosinophils % (A) 11 %; HCT 45.7 % (39.0-53.0); HDW 2.16; HGB 14.7 gm/dL (13.0-17.5); Luc # (Auto) 0.12; Luc % (Auto) 2; Lymphocytes # (A) 1.2 k/uL (1.0-4.8); Lymphocytes % (A) 24 %; MCH 33.3 pg (25.0-35.0); MCHC 32.1 g/dL (31.0-37.0); MCV 103.7 fL (80.0-100.0); Macrocytosis Slight; Mean Platelet Volume 7.6; Monocytes # (A) 0.4 k/uL (0-1.0); Monocytes % (A) 8 %; Neutrophils # (A) 2.7 k/uL (1.3-7.7); Neutrophils % (A) 54 %; RBC 4.41 m/uL (4.30-5.90); RDW 13.3 % (11.5-15.5); WBC (Perox) 3.82
[2016-11-22 09:40] LABS: ALT 32 U/L (21-72); AST 28 U/L (17-59); Alkaline Phosphatase 64 U/L (38-126); Anion Gap 10 mmol/L; Blood Urea Nitrogen 20 mg/dL (9-20); Calcium 9.5 mg/dL (8.4-10.2); Carbon Dioxide 26 mmol/L (22-30); Chloride 106 mmol/L (98-107); Cholesterol 197 mg/dL (<200); Glucose 92 mg/dL (74-99); HDL Cholesterol 85 mg/dL (40-60); Non-African American GFR(MDRD) >60 (>60 ml/min/1.73 sqM); Potassium 4.9 mmol/L (3.5-5.1); Sodium 142 mmol/L (137-145); Total Bilirubin 0.6 mg/dL (0.2-1.3); Total Protein 7.1 g/dL (6.3-8.2)
[2016-11-22 10:06] LABS: Prostate Specific Antigen 0.76 ng/mL (0.00-4.00)
[2016-11-22 11:14] LABS: Hemoglobin A1C 5.6 % (4.2-6.1)
== END | disposition home or self-care (01) ==
LOC: LABWHC1 08:25
PROVIDERS: ATTEND Internal Medicine Geriatric Medicine
DX: E78.00 Pure hypercholesterolemia, unspecified (principal); K70.10 Alcoholic hepatitis without ascites; I47.1 Supraventricular tachycardia; N40.0 Benign prostatic hyperplasia without lower urinary tract symptoms; K21.9 Gastro-esophageal reflux disease without esophagitis; R79.9 Abnormal finding of blood chemistry, unspecified
CPT/HCPCS: 36415; 80053; 80061; 83036; 84153; 84439; 84443; 85025

== ENCOUNTER → 2017-06-05 | Outpatient (CLI) | payer MEDICARE ==
--- NOTE | 2017-06-05 19:02 | US ---
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 EXAM MEASUREMENTS: RIGHT: Peak Systolic Velocity (PSV) cm/sec ----- Right CCA: 91.7 ----- Right ICA: 93.0 ----- Right ECA: 120.8 ICA/CCA ratio: 1.0 RIGHT: End Diastole cm/sec ----- Right CCA: 23.5 ----- Right ICA: 38.7 ----- Right ECA: 21.0 LEFT: Peak Systolic Velocity (PSV) cm/sec ----- Left CCA: 95.5 ----- Left ICA: 70.0 ----- Left ECA: 82.1 ICA/CCA ratio: 0.7 LEFT: End Diastole cm/sec ----- Left CCA: 24.8 ----- Left ICA: 21.6 ----- Left ECA: 15.0 VERTEBRALS (direction of flow): Right Vertebral: Antegrade Left Vertebral: Antegrade Rhythm: Normal Bilateral vessels dive deep. No significant stenosis seen IMPRESSION: There is antegrade flow in the vertebral arteries. The images and measurements suggest l ess than 50% stenosis in both internal carotid arteries. Exam is limited slightly by calcified plaque and shadowing. Criteria for Assigning % of Stenosis / Diameter reduction (Estimation based on the indirect measurements of the internal carotid artery velocities (ICA PSV). 1. Normal (no stenosis)=ICA PSV < 125 cm/s: ratio < 2.0: ICA EDV<40 cm/s. 2. Less than 50% stenosis=ICA PSV < 125 cm/s: ratio < 2.0: ICA EDV<40 cm/s. 3. 50 to 69% stenosis=ICA PSV of 125 to 230 cm/s: ration 2.0 ? 4.0: ICA EDV 40-100 cm/s. 4. Greater than 70% stenosis to near occlusion= ICA PSV > 230 cm/s: ratio > 4.0: ICA EDV > 100 cm/s. 5. Near occlusion= ICA PSV velocities may be low or undetectable: variable ratio and ICA EDV. 6. Total occlusion=unable to detect flow.
--- NOTE | 2017-06-05 22:03 | MR ---
EXAMINATION TYPE: MR brain wo/w con DATE OF EXAM: 06/05/2017 5:52 PM COMPARISON: 07/04/2011 HISTORY: Fall, head injury, memory loss CONTRAST: Patient received 7.5 mL intravenous Gadavist gadolinium contrast. Multiplanar and multispin-echo imaging of the brain was performed . Pre and post contrast enhanced i mages are obtained. The ventricles, basal cisterns and sulci overlying the cerebral convexities are mildly enlarged. There is evidence of mild to moderate periventricular white matter ischemic demyelination. There is a remote insult noted within the left occipital lobe. Remote deep white matter insults are also noted. No acute edema is seen on diffusion weighted imaging. There is no evidence for midline shift or mass effect. Acute intracranial hemorrhage or extra-axial collection is not evident. No enhancing lesions are seen. There is nonenhancing hypertrophic Tissue noted at the posterior C1-2 articulation which may reflect pannus formation from rheumatoid arthritis if there is such an underl donny condition. Hypertrophic tissue measures 12 x 24 mm. There is mass effect upon the medulla with d istortion noted. No evidence for abnormal signal within the medulla at this time. The paranasal sinuses and mastoid air cells are well-aerated. IMPRESSION: 1. Age-related atrophic and chronic small vessel ischemic change. No acute intracranial process at this time. No enhancing lesions are seen. 2. There is nonenhancing hypertrophic Tissue noted at the posterior C1-2 articulation which may refle ct pannus formation from rheumatoid arthritis if there is such an underlying condition. Other possibi lities are not excluded. Hypertrophic tissue measures 12 x 24 mm. There is mass effect upon the medul la with distortion noted.
== END | disposition home or self-care (01) ==
LOC: RADMRIMAIN 16:44
PROVIDERS: ATTEND Internal Medicine Geriatric Medicine
DX: G31.1 Senile degeneration of brain, not elsewhere classified (principal); I67.82 Cerebral ischemia; G46.3 Brain stem stroke syndrome
CPT/HCPCS: 93880; 70553; A9581

== ENCOUNTER → 2017-06-06 | Outpatient (CLI) | payer MEDICARE ==
--- NOTE | 2017-06-06 23:33 | MR ---
EXAMINATION TYPE: MR cervical spine wo/w con DATE OF EXAM: 06/06/2017 COMPARISON: CT scan 10/09/2014 HISTORY: Neck pain, fall hitting back of head, hx cervical fusion 10 yrs ago TECHNIQUE: Multiplanar, multisequence images of the cervical spine were acquired utilizing 7.5 mL intravenous Ga davist gadolinium contrast. Diffusion weighted imaging was performed. Findings There is multilevel anterior fusion surgery from C4 to C7. There is a few millimeter anterior subluxa tion of C7 in relation to T1. There is no compression fracture. Cervical spinal cord has normal signa l pattern. There is no evidence of edema. There is a small posterior disc bulge at C3-4. The spinal c anal measures 8.5 mm at C3-4. Brainstem appears intact. There is deformity at the base of the odontoid process. There appears to be a fracture of the odontoi d process and slight anterior angulation at the fracture site. This is a change compared to the old C T scan. The anterior arch of C1 appears to be displaced slightly posteriorly. There is a significant impingement on the brainstem however. IMPRESSION: Multilevel anterior fusion surgery. Degenerative first-degree C7-T1 spondylolisthesis. Fracture of the base of the dens with displacement. Displacement is probably 6 mm. This is a change c ompared to old CT scan. At the time of this report attempts were being made to contact the patient an d attending physician.
== END ==
LOC: RADMRIMAIN 17:52
PROVIDERS: ATTEND Orthopaedic Surgery Orthopaedic Surgery of the Spine
DX: M54.2 Cervicalgia (principal); M43.13 Spondylolisthesis, cervicothoracic region; S12.120A Other displaced dens fracture, initial encounter for closed fracture
CPT/HCPCS: 72156; A9581

== ENCOUNTER → 2017-08-21 | Outpatient (CLI) | payer MEDICARE ==
--- NOTE | 2017-08-21 14:22 | CT ---
EXAMINATION TYPE: CT cervical spine wo con DATE OF EXAM: 08/21/2017 COMPARISON: 06/06/2017 HISTORY: C1 displacement with dens fracture CT DLP: 409 mGycm. Automated Exposure Control for Dose Reduction was Utilized. TECHNIQUE: CT scan of the cervical spine is obtained without contrast, axial images are obtained, sa gittal and coronal reformatted images are also reviewed. FINDINGS: Atlantooccipital articulation is maintained without subluxation or dislocation. There is na rrowing of the atlantodental interval, likely on a degenerative basis with multifocal osseous cystic change. Bridging anterior osteophytes are seen at C2-C3 and C3-C4. There is postsurgical anterior cer vical fusion of C4, C5, C6, and C7. There is grade 1 anterolisthesis of approximately 6 mm, unchanged from the prior exam, C7 and T1. The facets maintain alignment with moderate facet arthropathy throug hout the cervical spine. Multilevel uncovertebral hypertrophy is also seen. With respect to the dens fracture there is extent through the dens into the base without extension to the body indicative of a type II fracture. Fracture line remains readily visible with nonunion. No m alalignment of the fracture fragments. Mild prevertebral soft tissue swelling and likely degenerative pannus with component of hemorrhage is seen surrounding the dens fracture. Remainder the prevertebra l soft tissues are unremarkable. The posterior pannus extends to the upper cervical spinal cord at it s ventral aspect without significant impression. No additional or acute fracture is seen in the cervi maritza spine. Atherosclerosis is noted of the carotid arteries incidentally. IMPRESSION: 1. 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 No new malalignment of the fracture fragments. Surrounding pannus formation and likely component of hemorrhage narrow the ventral subarachnoid space at the level of C2 and C1 without spinal cord im pingement or significant stenosis. 2. No new acute fracture of the cervical spine. Narrowing of the atlantodental interval is likely deg enerative as there are multifocal cystic changes of the dens. 3. Postsurgical change of an anterior cervical fusion device from C4 through C7 with unchanged grade 1 anterolisthesis of C7 on T1 in comparison to the prior.
== END | disposition home or self-care (01) ==
LOC: RADCTMAIN 13:05
PROVIDERS: ATTEND Neurological Surgery
DX: S12.110K Anterior displaced Type II dens fracture, subsequent encounter for fracture with nonunion (principal); M43.13 Spondylolisthesis, cervicothoracic region; Z98.1 Arthrodesis status
CPT/HCPCS: 72125

== ENCOUNTER → 2017-09-04 | Outpatient (CLI) | payer MEDICARE ==
--- NOTE | 2017-09-04 13:55 | XR ---
EXAMINATION TYPE: XR chest 2V DATE OF EXAM: 09/04/2017 COMPARISON: 09/14/2015 TECHNIQUE: PA and lateral views submitted. HISTORY: Presurgical FINDINGS: The lungs are clear and there is no pneumothorax, pleural effusion, or focal pneumonia. Postoperati ve change overlying the cervical spine. Granuloma right upper lobe. No overt failure. Hypertrophic an d degenerative change of the spine. Arthropathy of the shoulders. Previous surgery involving the lumb ar spine. IMPRESSION: 1. No acute process.
[2017-09-04 14:23] LABS: Appearance,Urine Clear (Clear); Bilirubin,Urine Negative (Negative); Blood,Urine Negative (Negative); Color,Urine Yellow; Glucose,Urine (UA) Negative (Negative); Ketones,Urine 1+ (Negative); Leukocyte Esterase,Urine Negative (Negative); Nitrite,Urine Negative (Negative); Protein,Urine Negative (Negative); Specific Gravity,Urine 1.018 (1.001-1.035); Urobilinogen,Urine <2.0 mg/dL (<2.0)
[2017-09-04 14:27] LABS: Basophils # (A) 0.1 k/uL (0-0.2); Basophils % (A) 1 %; Eosinophils # (A) 0.4 k/uL (0-0.7); Eosinophils % (A) 6 %; HGB 14.9 gm/dL (13.0-17.5); Lymphocytes # (A) 1.8 k/uL (1.0-4.8); Lymphocytes % (A) 23 %; MCH 32.9 pg (25.0-35.0); MCHC 32.3 g/dL (31.0-37.0); MCV 101.8 fL (80.0-100.0); Macrocytosis Slight; Monocytes # (A) 0.6 k/uL (0-1.0); Monocytes % (A) 8 %; Neutrophils # (A) 4.6 k/uL (1.3-7.7); Neutrophils % (A) 60 %; Platelet Count 202 k/uL (150-450); RBC 4.52 m/uL (4.30-5.90); WBC 7.7 k/uL (3.8-10.6)
[2017-09-04 14:28] LABS: Partial Thromboplastin Time 23.3 sec (22.0-30.0); Prothrombin Time 9.7 sec (9.0-12.0)
[2017-09-04 14:40] LABS: ALT 33 U/L (21-72); AST 33 U/L (17-59); Albumin 4.4 g/dL (3.5-5.0); Alkaline Phosphatase 58 U/L (38-126); Anion Gap 9 mmol/L; Blood Urea Nitrogen 20 mg/dL (9-20); Calcium 9.9 mg/dL (8.4-10.2); Carbon Dioxide 27 mmol/L (22-30); Chloride 104 mmol/L (98-107); Glucose 90 mg/dL (74-99); Sodium 140 mmol/L (137-145); Total Bilirubin 0.7 mg/dL (0.2-1.3); Total Protein 7.6 g/dL (6.3-8.2)
== END | disposition home or self-care (01) ==
LOC: RADXRMAIN 13:26
PROVIDERS: ATTEND Neurological Surgery
DX: S12.9XXA Fracture of neck, unspecified, initial encounter (principal)
CPT/HCPCS: 71046; 80053; 81003; 85025; 85610; 85730; 87070; 87086

== ENCOUNTER → 2017-11-26 | Outpatient (CLI) | payer MEDICARE ==
--- NOTE | 2017-11-26 17:24 | CT ---
EXAMINATION TYPE: CT cervical spine wo con DATE OF EXAM: 11/26/2017 COMPARISON: 08/21/2017 HISTORY: f/u cervical fx CT DLP: 441.7 mGycm Automated exposure control for dose reduction was used. TECHNIQUE: CT scan of the cervical spine is obtained without contrast, axial images are obtained, sa gittal and coronal reformatted images are also reviewed. FINDINGS: Vertebra overall have fairly normal alignment. There is a plate with screws fusing anterior ly the cervical spine from C4 to C7. There is 7 mm anterior subluxation of the 7 in relation to T1. T here is multilevel mild hypertrophic facet arthropathy. There is a single screw in the C2 vertebral body extending towards the dens. There is a transverse fr acture of the base of the dens. Fracture line still visible. There is widening of the fracture disten ds from 1 mm on an old exam to 5 to 6 mm on today's exam. The upper end of the screw is not engaged i n the dens. The tip of the screw is within the fracture line. There is some thickening of the transve rse ligament posterior to the dens that is unchanged. I see no stenosis of the spinal canal at the C1 -C2 level. IMPRESSION: There is ununited fracture of the base of the dens. The screw fixing the fracture appears to have backed out slightly from the dens. There is widening of the fracture line. I do not see subl uxation to suggest instability. There is a stable C7-T1 subluxation deformity with a relative spinal stenosis at this level. I do not have a postoperative exam to compare.
== END ==
LOC: RADCTMAIN 16:52
PROVIDERS: ATTEND Neurological Surgery
DX: S12.110K Anterior displaced Type II dens fracture, subsequent encounter for fracture with nonunion (principal); M48.03 Spinal stenosis, cervicothoracic region; S13.180A Subluxation of C7/T1 cervical vertebrae, initial encounter
CPT/HCPCS: 72125

== ENCOUNTER → 2017-12-23 | Outpatient (CLI) | payer MEDICARE ==
--- NOTE | 2017-12-23 09:59 | CT ---
EXAMINATION TYPE: CT cervical spine wo con DATE OF EXAM: 12/23/2017 COMPARISON: 11/26/2017 and 06/06/2017 HISTORY: Post surgical screw placement check. CT DLP: 528 mGycm. Automated Exposure Control for Dose Reduction was Utilized. TECHNIQUE: CT scan of the cervical spine is obtained without contrast, axial images are obtained, sa gittal and coronal reformatted images are also reviewed. FINDINGS: There is a surgically fixated nonunited type II odontoid fracture. The most cranial aspect of the obl iquely oriented transcortical fixation screw closely abuts the posterior cortical margin of the dens but does not extend past into the spinal canal. This is unchanged from the exam of 11/26/2017. Inferi or to this bridging the C4-7 vertebral bodies there is an anterior surgical fixation device with inte rvertebral disc cages and osseous fusion. There is persistent grade 1 anterolisthesis of C7 on T1 unc hanged from the prior. Multifocal facet arthropathy throughout the cervical spine and uncovertebral h ypertrophy are seen. No acute fracture is identified. Degenerative disc disease is seen at T1-T2 and C7-T1. Small posterior disc osteophyte complex is present at C3-C4. No prevertebral soft tissue swell ing. Again there is narrowing of the atlantodental interval, likely degenerative. Surrounding pannus has decreased in the interim. Mild mucosal thickening is seen of the visualized sphenoid sinuses. Atherosclerosis is noted of the c arotid vasculature. IMPRESSION: 1. Stability of the anterior cervical fusion and surgical fixation of the nonunited type II odontoid fracture with stable positioning of the single transcortical screw. 2. Persistent and unchanged grade 1 anterolisthesis of C7 on T1 in comparison to multiple prior exams . No new malalignment or acute fracture. 3. Multilevel degenerative disc disease and degenerative narrowing of the atlantodental interval.
== END | disposition home or self-care (01) ==
LOC: RADCTMAIN 09:04
PROVIDERS: ATTEND Neurological Surgery
DX: S12.110K Anterior displaced Type II dens fracture, subsequent encounter for fracture with nonunion (principal); M50.33 Other cervical disc degeneration, cervicothoracic region; M43.13 Spondylolisthesis, cervicothoracic region; Z98.1 Arthrodesis status
CPT/HCPCS: 72125

== ENCOUNTER → 2018-01-13 | Outpatient (CLI) | payer MEDICARE ==
--- NOTE | 2018-01-13 10:12 | CT ---
EXAMINATION TYPE: CT cervical spine wo con DATE OF EXAM: 01/13/2018 COMPARISON: 12/23/2017 HISTORY: Fracture of neck CT DLP: [address] of the cervical spine was performed with bone and soft tissue window settings submitted . Coronal and sagittal reconstruction is obtained. Again noted is surgically fixated nonunited type II odontoid fracture. Surgical fixation screw closel y abuts the posterior cortical margin of the dens to the left of midline but does not extend into the osseous structure. There is now 3.6 mm posterior subluxation of the dens relative to the body of C2 . This is a new finding. There is ACDF change extending from C4 through C6 with anterior fixation plate and intervertebral bod y spacers. There is anterior subluxation of C6 on C7 measuring 4.6 mm stable relative to prior examin ation. No evidence for central stenosis. Moderate degenerative disc space narrowing at C3-4 and C6-C7. No disc herniation or central stenosis. Foramina are patent. Uncovertebral joint hypertrophy. IMPRESSION: 1. Surgically fixated nonunited type II odontoid fracture. Fixation screw abuts the peripheral margin of the dens. There is now posterior subluxation of the odontoid relative to the C2 body with 3.6 mm. 2. Stable ACDF changes and alignment.
== END | disposition home or self-care (01) ==
LOC: RADCTMAIN 08:39
PROVIDERS: ATTEND Neurological Surgery
DX: S12.111D Posterior displaced Type II dens fracture, subsequent encounter for fracture with routine healing (principal); Z98.1 Arthrodesis status
CPT/HCPCS: 72125

== ENCOUNTER → 2018-04-10 | Outpatient (CLI) | payer MEDICARE ==
--- NOTE | 2018-04-10 09:46 | CT ---
EXAMINATION TYPE: CT cervical spine wo con DATE OF EXAM: 04/10/2018 COMPARISON: 01/13/2018 HISTORY: Follow up scan per patient CT DLP: 485.4 mGycm Automated exposure control for dose reduction was used. TECHNIQUE: CT scan of the cervical spine is obtained without contrast, axial images are obtained, sa gittal and coronal reformatted images are also reviewed. FINDINGS: There is surgically fixated nonunited type II odontoid fracture. Surgical fixation screw cl osely abuts the posterior cortical margin of the dens to the left of midline but does not extend into the osseous structure. There is now 3.6 mm posterior subluxation of the dens relative to the body of C2. This is a new finding. There is ACDF change extending from C4 through C6 with anterior fixation plate and intervertebral bod y spacers. There is anterior subluxation of C6 on C7 measuring 4.6 mm stable relative to prior examin ation. No evidence for central stenosis. Moderate degenerative disc space narrowing at C3-4 and C6-C7 . No disc herniation or central stenosis. Foramina are patent. Uncovertebral joint hypertrophy. Gordon es of chronic sinusitis noted. Atherosclerotic change of the carotid arteries noted. IMPRESSION: 1. Surgically fixated nonunited type II odontoid fracture with significant displacement of fracture f ragment which is stable relative to the prior exam. Fixation screw abuts the peripheral margin of the dens but does not definitively be seen to be within the substance of the tip of the odontoid. Correl ate clinically. There is there remains a posterior displacement of the tip of the odontoid relative t o the body of C2. 2. Stable ACDF changes and alignment. With persistent 4.6 mm anterolisthesis of C6 on C7.
--- NOTE | 2018-04-10 13:30 | XR ---
Cervical spine with flexion and extension views HISTORY: Nonunited odontoid fracture Correlation to prior CT 01/13/2018, CT 04/10/2018 Nonunited odontoid fracture is again seen, screw in place as described on CT same date. Bone minerali zation is reduced. Anterior cervical fusion and discectomy changes are present as on CT at C4-C7. Lis thesis at C7-T1 is not seen due to superimposed soft tissues of the neck. Multilevel facet arthropath y changes are present. At C3-4 on the right there is foraminal encroachment bilaterally due to latera l extension of endplates. The dens is not well seen on flexion and extension views, difficult to appr oximately subluxation. There are vascular calcifications present. Multilevel facet arthropathy. Apica l calcified granuloma suspected on the right. IMPRESSION: There are limitations to the exam.
== END | disposition home or self-care (01) ==
LOC: RADCTMAIN 09:03
PROVIDERS: ATTEND Neurological Surgery
DX: S12.9XXD Fracture of neck, unspecified, subsequent encounter (principal)
CPT/HCPCS: 72052; 72125

== ENCOUNTER → 2018-12-01 | Outpatient (CLI) | payer MEDICARE ==
[2018-12-01 10:59] LABS: Basophils # (A) 0.1 k/uL (0-0.2); Basophils % (A) 1 %; Eosinophils # (A) 0.6 k/uL (0-0.7); Eosinophils % (A) 9 %; HCT 42.9 % (39.0-53.0); HGB 13.7 gm/dL (13.0-17.5); Lymphocytes # (A) 1.5 k/uL (1.0-4.8); Lymphocytes % (A) 23 %; MCH 33.3 pg (25.0-35.0); MCV 104.1 fL (80.0-100.0); Macrocytosis Slight; Monocytes # (A) 0.4 k/uL (0-1.0); Monocytes % (A) 7 %; Neutrophils # (A) 3.8 k/uL (1.3-7.7); Neutrophils % (A) 58 %; Platelet Count 197 k/uL (150-450); RBC 4.12 m/uL (4.30-5.90); RDW 12.7 % (11.5-15.5); WBC 6.5 k/uL (3.8-10.6)
[2018-12-01 11:18] LABS: Albumin 4.4 g/dL (3.5-5.0); INR 0.9 (<1.2); Partial Thromboplastin Time 23.2 sec (22.0-30.0); Potassium 5.5 mmol/L (3.5-5.1); Prothrombin Time 9.6 sec (9.0-12.0); Total Bilirubin 0.6 mg/dL (0.2-1.3); Total Protein 7.9 g/dL (6.3-8.2)
[2018-12-01 11:55] LABS: Appearance,Urine Clear (Clear); Bilirubin,Urine Negative (Negative); Blood,Urine Negative (Negative); Color,Urine Yellow; Glucose,Urine (UA) Negative (Negative); Ketones,Urine Negative (Negative); Leukocyte Esterase,Urine Negative (Negative); Nitrite,Urine Negative (Negative); PH, Urine 6.5 (5.0-8.0); Protein,Urine Negative (Negative); Specific Gravity,Urine 1.022 (1.001-1.035); Urobilinogen,Urine <2.0 mg/dL (<2.0)
== END | disposition home or self-care (01) ==
LOC: LABPAT 10:14
PROVIDERS: ATTEND Orthopaedic Surgery
DX: Z01.812 Encounter for preprocedural laboratory examination (principal)
CPT/HCPCS: 36415; 80053; 81003; 85025; 85610; 85730; 87070

== ENCOUNTER 2018-12-14 10:44 | Day surgery (SDC) | payer MEDICARE ==
[~2018-12-14 10:44] MED LIST: ACETAMINOPHEN TAB 500 MG TAB PO ONE; DEXAMETHASONE SOD PHOSPHATE 10 MG/ML 1 ML VIAL IV ONE; LACTATED RINGERS 1,000 ML IV SCH; MELOXICAM 7.5 MG TAB PO ONE; MIDAZOLAM 2 MG/2 ML VIAL IV PRN; ONDANSETRON 4 MG/2 ML VIAL IVP ONE; TRANEXAMIC ACID 1,000 MG in SODIUM CHLORIDE 0.9% 100 ML IVPB ONE
[2018-12-14] MEDS ORDERED: fentaNYL (PF) 50 MCG/ML 2 ML AMP IV ONE (11:30)
[2018-12-14] MEDS ORDERED: MIDAZOLAM 2 MG/2 ML VIAL IV ONE (11:31)
[2018-12-14] MEDS ORDERED: SODIUM CHLORIDE 0.9% 100 ML BAG ONE (12:44)
[2018-12-14] MEDS ORDERED: PROPOFOL 10 MG/ML 20 ML VIAL IV ONE (12:44)
[2018-12-14] MEDS ORDERED: PHENYLEPHRINE-0.9% NACL SYG 1 MG/10 ML SYRINGE ONE (12:44)
[2018-12-14] MEDS ORDERED: SUCCINYLCHOLINE CHLORIDE 100 MG/5 ML SYR IV ONE (12:44)
[2018-12-14] MEDS ORDERED: TRANEXAMIC ACID 1,000 MG/10 ML VIAL ONE (12:44)
[2018-12-14] MEDS ORDERED: GLYCOPYRROLATE 0.2 MG/ML 2 ML VIAL ONE (12:44)
[2018-12-14] MEDS ORDERED: MIDAZOLAM 2 MG/2 ML VIAL ONE (12:44)
[2018-12-14] MEDS ORDERED: fentaNYL (PF) 50 MCG/ML 2 ML AMP ONE (12:44)
[2018-12-14] MEDS ORDERED: ROCURONIUM BROMIDE 10 MG/ML 10 ML VIAL IV ONE (12:44)
[2018-12-14] MEDS ORDERED: NEOSTIGMINE 1 MG/ML 10 ML VIAL ONE (12:44)
[2018-12-14] MEDS ORDERED: ROPIVACAINE 0.2%-NS ON-Q PUMP 1,090 MG, EMPTY PAIN BALL 1 EACH MISCELLANE PRN (13:10)
--- NOTE | 2018-12-14 13:12 | P.ANPRN ---
Procedure Note - Anesthesia - Nerve Block Performed Right Adductor Canal Infusion Time Out Performed: Yes Date of Procedure: 12/14/18 Procedure Start Time: 11:30 Procedure Stop Time: 11:45 Location of Patient Procedure: PreOp Indication: Acute Post-Operative Pain, Requested by Surgeon Specifically requested for management of pain by DrAnita: Gustavo Salinas Sedation Type: Sedate with meaningful contact maintained Preparation: Sterile Prep Position: Supine Catheter Depth at Skin (cm): 8 Catheter: Indwelling Needle Types: Pajunk Needle Gauge: 18 Ultrasound used to visualize needle placement: Yes Ultrasound used to observe medication spread: Yes Injectate: 0.5% Ropivacaine (see comment for volume) (20 cc) Blood Aspirated: No Pain Paresthesia on Injection Noted: No Resistance on Injection: Normal Image Stored and Saved: Yes Events: Uneventful and Well Tolerated
[2018-12-14] MEDS: ROPIVACAINE 246.25 MG, EPINEPHrine 0.5 MG, KETOROLAC 30 MG, cloNIDine HCL/PF 80 MCG, WA... MISCELLANE ONE ×10 (13:27→14:03)
[2018-12-14] MEDS ORDERED: LACTATED RINGERS 1,000 ML IV ONE (13:28)
[2018-12-14] MEDS ORDERED: ceFAZolin 3,000 MG in SODIUM CHLORIDE 0.9% IRRIGATIO 3,000 ML IRRIGATION ONE (13:28)
--- NOTE | 2018-12-14 14:35 | P.OP ---
Date of Procedure: 12/14/18 Procedure(s) Performed: PREOPERATIVE DIAGNOSIS: 1. Right knee severe osteoarthritis with genu varum; 2. Remote Clay Schlatter fragment POSTOPERATIVE DIAGNOSIS: Right knee severe osteoarthritis with genu varum 2. Remote [place] Schlatter fragment; 3. Anterior patellar exostosis OPERATION: 1. Right knee cemented total replacement arthroplasty; 2. Open removal patellar exostosis ANESTHESIA: Spinal ESTIMATED BLOOD LOSS: 50 ml. CREAM DUMPER: Gerri Reed PA-C (assistance with: patient positioning, retraction, exposure, hemostasis, leg positioning, implantation, irrigation, closure, dressing) COMPLICATIONS: None apparent. COMPONENTS IMPLANTED: Journey II BCS total knee system from [employer] [facility] INDICATIONS: Kota is a 73 year old male with a history of right knee osteoarthritis. The patient's knee is end-stage, and conservative management has failed. The operation of knee replacement has been discussed at length in the office, as well as potential risks and complications. These are inclusive of, but not limited to: bleeding, infection, scarring, discomfort, blood vessel and nerve damage, need for further surgery, failure to relieve symptoms, persistence, recurrence, or worsening of problems, loosening, dislocation, wear, blood clot, pulmonary embolism, , gait dysfunction, stiffness, and other risks as discussed in the office. 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 The patient elects to proceed and the consent form has been signed. PROCEDURE: The patient was taken to the operating room and positioned on the operating room table in the supine position. Anesthesia was initiated. Care was taken to make sure that all pressure points were adequately padded. The operative lower extremity was prepped and draped in the usual aseptic fashion using ChloraPrep. Ioban drape was used for the case and the patient received intravenous antibiotics within one hour of the incision. A pneumotourniquet and leg aviles were used for the case. The limb was exsanguinated with an Esmarch bandage and the tourniquet was inflated to 350 mmHg. Time-out was called confirming the patient's identity, side, procedure and administration of antibiotics and tranexamic acid. The incision was then created midline directly over the right knee, carried down through skin and into the subcutaneous tissues and down to fascia. Patellar exostosis was noted towards the inferior portion of the anterior patella. The exostosis was approximately 8 mm raised and oval in shape, 2 cm by 1.5 cm. This exostosis was removed by removing soft tissue over the exostosis and then manually removing it using a rongeur. Of note, soft tissue was noted behind this exostosis. Full thickness subcutaneous medial flap was developed. Medial parapatellar arthrotomy was performed and the interior of the knee was inspected. There was end-stage osteoarthritis of the knee with a mild to moderate genu valgum type deformity. The fat pad was excised and proximal medial release on the tibia was completed using meticulous dissection and a curved osteotome. The anterior cruciate ligament was taken down. Note was made of sig nificant attrition of the anterior and significant degenerative appearance of the cruciate ligaments. The exposure was excellent. The distal patellar tendon was firmly attached to the Clay-Schlatter fragment, and although there was a bit of mobility of this fragment, the soft tissue was continuous throughout and I felt that he did not need formal fixation of this fragment as he had an intact extensor mechanism prior to the operation and the fragment itself was asymptomatic preoperatively. The knee was flexed 90 degrees and the patella was everted. The [employer] pre- made distal cutting block was attached and pinned into position. The planned cut was analyzed visually and with the alignment daryl and found to be satisfactory without the need for any adjustment. The oscillating saw was then used to make the distal femoral cut and make the alignment holes for the 5 in 1 block. This cut was confirmed to be flat with the flat end of an osteotome. The 5 in 1 block was then used to create the anterior posterior condylar resections and the chamfer cuts. The retractors were placed around the tibia and the tibial surface was addressed. The Visionaire pre-made guide was placed onto the exposed tibial surface and pinned into position to blade the rotational alignment. The alignment of the guide was checked for depth of plannned resection, slope, and varus valgus. Guide was confirmed to be in good position and the tibial cut was then created with protection of the posterior neurovascular structures and the collateral ligaments. The tibial cut surface was removed and sized. Spacer block technique was then used to confirm that the flexion and extension gaps were equal. Soft tissue releases and adjustment of the tibial and/or femoral cuts were made, as necessary, until the gaps were equal. This included release of the posterior cruciate ligament, which was excessively tight in this patient. Prior to placing trial components, anesthetic solution consisting of ropivicaine with epinephrine, ketorolac, and clonidine was injected carefully and methodically in a grid pattern using aspiration technique into the soft tissue around the knee circumferentially, starting with the deeper tissues first and progressing to fascia, and then finally the skin/subcutaneous tissue. Particular care was taken when injecting the posterior capsule, with avoidance of the midline posterior area. The trial components were inserted. The tibial tray was allowed to self center and the patella was noted to track very well. The position of the tibial component was marked and noted to be nearly exactly aligned with the pre-drilled holes from the [employer] guide. The tibia was then finished for a stemmed tibial component. Patellar resurfacing was performed using a reamer. The size of the required patellar component was estimated and the patellar surface was then reamed down to a residual thickness which would recreate the [place] thickness with the component. The exact placement of the patellar component was adjusted for position based on preoperative x-rays and intraoperative findings. Trial components were removed and the cut surfaces of the bone were pulse lavaged thoroughly and dried. Cement was mixed on the back table and applied to the final components. Cement was then applied to the tibial surface and pressurized into the surface using finger pressurization technique. The tibial component was then applied and excess cement was removed after it was impacted securely and noted to be flush with the cut surface. In similar fashion, the cement was applied to the cut femoral surface, pressurized in using finger pressurization and the component was impacted into place. Excess cement was removed. The polyethylene spacer was then implanted and locked into position. The patellar component was then applied in similar technique and a patellar clamp was used to hold the patella in place as the cement hardened. Once the cement had fully hardened, the knee was reinspected. Any other cement extrusion was removed and final kinematic testing showed range of motion from 0 to 130 degrees with excellent stability, both medially and laterally and appropriate alignment of the leg. Patellar tracking was excellent. The knee was then thoroughly pulse lavaged with normal saline. The tourniquet was deflated and hemostasis was obtained with electrocautery and IV tranexamic acid, 1 g given at the start of the operation and 1 g at the start of closure. Closure was with #2 Ethibond in the fascia/capsule and supplemented with #2 Quill, 2-0 Vicryl suture was used for the subcutaneous tissues and 3-0 Quill for the skin. Dermabond/Steri-Strips were then applied. A lightly compressive dressing was applied using Webril and an Srinivas wrap. The [facility] and taken to the recovery room in stable condition. Sponge and needle counts were correct.
[2018-12-14] MEDS ORDERED: TEMAZEPAM 15 MG CAP PO PRN (15:14)
[2018-12-14] MEDS ORDERED: HYDROcodone/APAP 7.5-325MG 1 EACH TAB PO PRN (15:14)
[2018-12-14] MEDS ORDERED: NALOXONE 0.4 MG/ML 1 ML VIAL IV PRN (15:14)
[2018-12-14] MEDS ORDERED: NA PHOS,M-B/NA PHOS,DI-BA 133 ML ENEMA RECTAL PRN (15:14)
[2018-12-14] MEDS ORDERED: ONDANSETRON 4 MG/2 ML VIAL IVP PRN (15:14)
[2018-12-14] MEDS ORDERED: MAGNESIUM HYDROXIDE 2,400 MG/10 ML CUP PO PRN (15:14)
[2018-12-14] MEDS ORDERED: HYDROmorphone 0.5 MG/0.5 ML SYRINGE IVP PRN ×2 (15:14)
[2018-12-14] MEDS ORDERED: BISACODYL 10 MG SUPP RECTAL PRN (15:14)
[2018-12-14] MEDS ORDERED: HYDROmorphone 1 MG/ML 1 ML SYRINGE IVP PRN (15:14)
[2018-12-14] MEDS: HYDROmorphone 0.5 MG/0.5 ML SYRINGE IVP PRN ×2 (15:44→16:45)
--- NOTE | 2018-12-14 15:55 | XR ---
EXAMINATION TYPE: XR knee limited RT DATE OF EXAM: 12/14/2018 COMPARISON: NONE TECHNIQUE: Two views submitted HISTORY: Post op FINDINGS: There is a prosthetic knee in near anatomic alignment. There is soft tissue edema and emphysema. Th ere is a chronic appearing deformity of the tibial tubercle. IMPRESSION: 1. Postoperative change. Appears in near-anatomic alignment
[2018-12-14] MEDS: LACTATED RINGERS 1,000 ML IV SCH (18:25)
[2018-12-14] MEDS ORDERED: LORazepam 2 MG/ML INJ IV PRN (19:13)
[2018-12-14] MEDS ORDERED: LORazepam 1 MG TAB PO PRN (19:13)
[2018-12-14 19:50] VITALS: BMI 25.0
[2018-12-14] MEDS: ASPIRIN 325 MG TAB PO SCH (20:59)
[2018-12-14] MEDS ORDERED: SENNOSIDES-DOCUSATE SODIUM 1 EACH TAB PO SCH (21:00)
[2018-12-15] MEDS: LACTATED RINGERS 1,000 ML IV SCH ×2 (03:21→11:25)
[2018-12-15 07:21] LABS: Basophils % (A) 0 %; Eosinophils % (A) 0 %; HCT 34.7 % (39.0-53.0); HGB 11.4 gm/dL (13.0-17.5); Lymphocytes # (A) 1.4 k/uL (1.0-4.8); Lymphocytes % (A) 12 %; MCH 33.9 pg (25.0-35.0); MCHC 32.7 g/dL (31.0-37.0); MCV 103.6 fL (80.0-100.0); Macrocytosis Slight; Mean Platelet Volume 6.2; Monocytes # (A) 0.6 k/uL (0-1.0); Monocytes % (A) 5 %; Neutrophils # (A) 9.1 k/uL (1.3-7.7); Neutrophils % (A) 80 %; Platelet Count 170 k/uL (150-450); RBC 3.35 m/uL (4.30-5.90); RDW 12.7 % (11.5-15.5); WBC 11.3 k/uL (3.8-10.6)
[2018-12-15 08:02] VITALS: BP 121/72; PULSE 96; RESP 12; TEMP 98
[2018-12-15] MEDS: ASPIRIN 325 MG TAB PO SCH (08:20)
[2018-12-15] MEDS ORDERED: MELOXICAM 7.5 MG TAB PO SCH (09:00)
[2018-12-15] MEDS ORDERED: POLYETHYLENE GLYCOL 3350 17 GM POWD.PACK PO SCH (09:00)
[2018-12-15] MEDS ORDERED: GABAPENTIN 300 MG CAP PO SCH (09:00)
[2018-12-15] MEDS ORDERED: METOPROLOL TARTRATE 12.5 MG TAB PO SCH (09:00)
[2018-12-15] MEDS ORDERED: ASCORBIC ACID 500 MG TAB PO SCH (09:00)
[2018-12-15] MEDS ORDERED: MULTIVITAMINS, THERA 1 EACH TAB PO SCH (09:00)
[2018-12-15] MEDS ORDERED: ASPIRIN 81 MG PO SCH (09:00)
[2018-12-15] MEDS ORDERED: THIAMINE 100 MG TAB PO SCH (09:00)
--- NOTE | 2018-12-15 10:27 | P.DS ---
Providers Expected date of discharge: 12/15/18 Attending physician: Gustavo Salinas Consults: 12/14/18 15:14 Consult Physician Routine Consulting Provider: Vishnu Blackwell Reason/Comments: Medical management Do you want consulting provider notified?: Yes Primary care physician: Vishnu Blackwell - Discharge Diagnosis(es) (1) Primary osteoarthritis of right knee Current Visit: Yes Status: Acute (2) Status post total right knee replacement Current Visit: Yes Status: Acute Hospital Course: This is a 73-year-old male who was last seen with complaint of continued right knee pain. The patient has a known history of degenerative arthritis of the right knee and presents to discuss surgical options. After discussion and consideration the patient elects to proceed with total right knee arthroplasty. The patient is seen preoperatively by his primary care physician and cleared for surgery. The patient is admitted to [facility] for total right knee arthroplasty. The procedures performed without complication or sequelae. Patient is doing well postoperatively. Vital signs are stable at discharge. Labs are stable at discharge. the patient is ambulating well with walker with minimal assistance. The patient is discharged to home on postop day #1 pending medical clearance. Please see orders and refer to the [facility] rec for accurate list of medications. Patient Condition at Discharge: Good Plan - Discharge Summary Discharge Rx Participant: Yes New Discharge Prescriptions: New Aspirin 325 mg PO BID #1 tab HYDROcodone/APAP 7.5-325MG [[place] 7.5-325] 1 - 2 tab PO Q4-6H PRN #50 tab PRN Reason: Pain Sennosides-Docusate Sodium [Senokot-S] 1 tab PO BID #60 tablet No Action Ascorbic Acid [Vitamin C] 1,000 mg PO DAILY Gabapentin [Neurontin] 100 mg PO BID Multivitamin [Men's Multi-Vitamin] 1 tab PO DAILY Polyethylene Glycol 3350 [Miralax] 17 gm PO DAILY QUEtiapine [SEROquel] 25 mg PO HS Aspirin 81 mg PO DAILY Thiamine [Vitamin B-1] 100 mg PO DAILY Metoprolol Tartrate [Lopressor] 25 mg PO BID [place] 500 mg PO BID Melatonin 5 mg PO HS Discharge Medication List Ascorbic Acid [Vitamin C] 1,000 mg PO DAILY 10/19/14 [History] Gabapentin [Neurontin] 100 mg PO BID 10/19/14 [History] Multivitamin [Men's Multi-Vitamin] 1 tab PO DAILY 10/19/14 [History] Polyethylene Glycol 3350 [Miralax] 17 gm PO DAILY 10/27/16 [History] QUEtiapine [SEROquel] 25 mg PO HS 10/27/16 [History] Aspirin 81 mg PO DAILY 10/29/16 [Rx] Melatonin 5 mg PO HS 12/08/18 [History] Metoprolol Tartrate [Lopressor] 25 mg PO BID 12/08/18 [History] [place] 500 mg PO BID 12/08/18 [History] Thiamine [Vitamin B-1] 100 mg PO DAILY 12/08/18 [History] Aspirin 325 mg PO BID #1 tab 12/15/18 [Rx] HYDROcodone/APAP 7.5-325MG [[place] 7.5-325] 1 - 2 tab PO Q4-6H PRN #50 tab 12/15/18 [Rx] Sennosides-Docusate Sodium [Senokot-S] 1 tab PO BID #60 tablet 12/15/18 [Rx] Follow up Appointment(s)/Referral(s): Gustavo Salinas MD [STAFF PHYSICIAN] - 2 Weeks Activity/Diet/Wound Care/Special Instructions: May bear weight as tolerated with walker. May shower if no drainage from incision. Begin outpatient physical therapy this week. Discharge Disposition: HOME SELF-CARE
--- NOTE | 2018-12-15 11:29 | P.PN ---
Progress Note - Text Anesthesia POD 1 0700. Patient is status post right TKR under spinal anesthesia anesthesia with a right adductor canal catheter placed for postoperative pain relief. With ropivacaine 0.2% running at 8 cc's per hour, the patient's VAS is (2, 4). Catheter site is clean dry and intact.
[2018-12-15] MEDS ORDERED: QUEtiapine 25 MG TAB PO SCH (21:00)
[2018-12-15] MEDS ORDERED: MELATONIN 5 MG TABLET PO SCH (21:00)
--- NOTE | 2018-12-16 19:37 | P.CONS ---
History of Present Illness - Reason for Consult Consult date: 12/14/18 Medical management Requesting physician: Gustavo Salinas - Chief Complaint Right total knee arthroplasty, history of tachycardia, history of CVA, hist - History of Present Illness 73-year-old male one of my office patient with long-standing history of alcohol abuse, history of CVA, hypertension, hyperlipidemia and tachycardia was known to have BPH and chronic lower back pain post back surgery not too long ago who was seen and evaluated by Dr. Salinas for right total knee arthroplasty was scheduled for 12/14/2018. Patient ended up going for surgery successful r esult with no major abnormality was admitted to the hospital overnight medication were started patient was watch hemodynamically his pain is well managed his slightly with confuse start him on his nerve meds and DT prophylaxis prepare for any complication. Review of Systems CONSTITUTIONAL: Well-developed no acute respiratory distress. EYES: No icterus sclerae, no conjunctivitis. EARS, NOSE, MOUTH, THROAT, and FACE: No sore throat, lymphadenopathy, carotid bruits or deformity. RESPIRATORY: No SOB cough or wheezes. CARDIOVASCULAR: No CP, Palpitation, PND, Orthopnea, or angina. GASTROINTESTINAL: No Abd pain, Nausea or vomiting, no Diarrhea or constipation, No GI Bleed, no distention or masses. GENITOURINARY: Negative for Hematuria or UTI, no kidney stones. INTEGUMENT/BREAST: Post total knee arthroplasty HEMATOLOGIC/LYMPHATIC: Negative for bleed or purpura. MUSCULOSKELTAL: Negative for Myalgia or arthralgia. NEURLOGICAL: Mild confusion and history of alcoholism BEHAVIORAL/PSYCH: Negative. ENDOCRINE: Negative. Past Medical History Past Medical History: CVA/TIA, GERD/Reflux, Osteoarthritis (OA), Pneumonia, Prostate Disorder, Supraventricular Tachycardia (SVT) Additional Past Medical History / Comment(s): neuropathy, BLEEDING ULCER IN PAST,ALCOHOL ABUSE/PAST DT'S, hx. SVT, hx. stroke/TIA per MRI, hx. of sepsis in 2015 after back surg-e-coli blood,urine & sputum, ended up on vent & transferred to [facility] History of Any Multi-Drug Resistant Organisms: None Reported Past Surgical History: Back Surgery, Orthopedic Surgery Additional Past Surgical History / Comment(s): pain procedures, neck, back and wei. shoulder surg, cervical surg. @[facility] 2016, TOTAL RIGHT KNEE ARTHROPLASTY 12/14/2018 Past Anesthesia/Blood Transfusion Reactions: No Reported Reaction Additional Past Anesthesia/Blood Transfusion Reaction / Comm: blood transfusion -no reactions to it Past Psychological History: Anxiety, Depression Smoking Status: Former smoker Past Alcohol Use History: Abuse, Daily Additional Past Alcohol Use History / Comment(s): Quit smoking 30 yrs. ago. Smoked 1 PPD, admits to drinking a pint of vodka per day. Past Drug Use History: None Reported - Past Family History Brother(s) Family Medical History: Myocardial Infarction (MS) Additional Family Medical History / Comment(s): 2 btothers from mi's Son(s) Family Medical History: No Reported History Daughter(s) Family Medical History: No Reported History Mother Family Medical History: Diabetes Mellitus Additional Family Medical History / Comment(s): controlled diabetic Father Family Medical History: Myocardial Infarction (MS), Sleep Apnea/CPAP/BIPAP Medications and Allergies Home Medications Medication Instructions Recorded Confirmed Type Ascorbic Acid [Vitamin C] 1,000 mg PO DAILY 10/19/14 12/14/18 History Gabapentin [Neurontin] 100 mg PO BID 10/19/14 12/14/18 History Multivitamin [Men's Multi-Vitamin] 1 tab PO DAILY 10/19/14 12/14/18 History Polyethylene Glycol 3350 [Miralax] 17 gm PO DAILY 10/27/16 12/14/18 History QUEtiapine [SEROquel] 25 mg PO HS 10/27/16 12/14/18 History Aspirin 81 mg PO DAILY 10/29/16 12/14/18 Rx Melatonin 5 mg PO HS 12/08/18 12/14/18 History Metoprolol Tartrate [Lopressor] 25 mg PO BID 12/08/18 12/14/18 History [place] 500 mg PO BID 12/08/18 12/14/18 History Thiamine [Vitamin B-1] 100 mg PO DAILY 12/08/18 12/14/18 History Aspirin 325 mg PO BID #1 tab 12/15/18 Rx HYDROcodone/APAP 7.5-325MG [[place] 1 - 2 tab PO Q4-6H PRN #50 tab 12/15/18 Rx 7.5-325] Sennosides-Docusate Sodium 1 tab PO BID #60 tablet 12/15/18 Rx [Senokot-S] Allergies Allergy/AdvReac Type Severity Reaction Status Date / Time No Known Allergies Allergy Verified 12/14/18 18:29 Physical Exam Vitals: Vital Signs Temp Pulse Pulse Resp BP Pulse Ox 12/15/18 07:00 98 F 96 12 121/72 98 12/15/18 00:12 97.9 F 98 15 106/66 95 12/14/18 18:54 97.8 F 70 15 104/66 98 12/14/18 18:28 98 F 69 12 173/72 99 12/14/18 16:56 73 16 94/57 100 12/14/18 16:30 80 16 84/51 99 12/14/18 16:15 63 16 87/52 98 12/14/18 16:00 61 16 91/53 98 12/14/18 15:45 82 16 87/47 94 L 12/14/18 15:30 63 16 95/59 96 12/14/18 15:09 97.3 F L 82 18 132/83 100 Intake and Output 12/14/18 12/15/18 12/15/18 22:59 06:59 14:59 Intake Total 200 1580 480 Balance 200 1580 480 Intake: IV 200 Intake, IV Titration 1100 Amount Lactated Ringers 1,000 ml 1000 @ 100 mls/hr IV .Q10H [facility] Rx#:[id number] ceFAZolin 2 gm In Sodium 50 Chloride 0.9% 50 ml @ 100 mls/hr IVPB Q8H [facility] Rx#: [id number] ceFAZolin 2 gm In Sodium 50 Chloride 0.9% 50 ml @ 100 mls/hr IVPB Q8HR [facility] Rx# :[id number] Oral 480 480 Other: # Voids 1 General Appearance: Alert, cooperative, no distress, appears stated age. Neck HEENT: Supple, no lymphadenopathy, no thyroid enlargement, no carotid bruits. Quite bit of stiffness in the neck with old surgery. Lungs: Clear to auscultation without crackles or wheezes no rhonchi, no deformity. Chest Wall: Chest wall normal expansion with deep inspiration no tenderness and no deformity was found on exam, no costochondral pain or discomfort. Heart: Regular rate and rhythm, S1, S2 normal, no murmur, rub or gallop. Mild s kip beats. Back: Symmetric, no curvature, ROM normal, no CVA tenderness. Abdomen: Soft, non-tender, bowel sounds active all four quadrants, no masses, no organomegaly. Extremities: Right knee incision looks fine. Pulses: 2+ and symmetric. Skin: Skin color, texture, tugor normal, no rashes or lesions. Neurologic: Alert oriented x3 cranial nerves II through XII intact, no motor deficit, no abnormal balance or gait. Results CBC & Chem 7: 12/15/18 06:46 12/14/18 11:17 Labs: Abnormal Lab Results - Last 24 Hours (Table) 12/15/18 Range/Units 06:46 WBC 11.3 H (3.8-10.6) k/uL RBC 3.35 L (4.30-5.90) m/uL Hgb 11.4 L (13.0-17.5) gm/dL Hct 34.7 L (39.0-53.0) % MCV 103.6 H (80.0-100.0) fL Neutrophils # 9.1 H (1.3-7.7) k/uL Assessment and Plan Plan: 1 post right total knee arthroplasty: Patient is doing very well continue home meds will watch patient hemodynamic status continued to control his pain. 2 history of arrhythmia: Has been doing well on metoprolol continue medication. 3 chronic history of alcoholism with previous history of alcohol withdrawal symptoms with delirium tremor: Patient be watch carefully was start him on At ra[place] prophylaxis the patient ended up leaving the hospital within 24 hours should avoid any complication, and the meanwhile continue patient on circumflex well thiamine and multivitamins. 4 chronic neuropathy: Has been on gabapentin 100 mg twice a day. 5 chronic depression and mild anxiety remain on Seroquel 25 mg daily at bedtime. 6 chronic history GERD and hiatal hernia: Patient be on Pepcid. 7 BPH: Watch for any urinary retention patient has been on [place] and wished to continue. 8 chronic lower back pain: Has been on pain meds with smaller dose of Tylenol No. 3 and gabapentin. 9 GI prophylaxis: Will be on Pepcid 20 mg daily. 10 DVT prophylaxis: Patient was started on aspirin. CODE STATUS: Full code. Dr. Salinas thank you very much for the consult if I can be any further help to please let me know.
== END 2018-12-15 11:39 | disposition home or self-care (01) ==
LOC: OR 10:44 → 4SSUR 16:55 → OR 12-15 11:39
PROVIDERS: ATTEND Orthopaedic Surgery
DX: M17.11 Unilateral primary osteoarthritis, right knee (principal); M21.161 Varus deformity, not elsewhere classified, right knee; D16.31 Benign neoplasm of short bones of right lower limb; I47.1 Supraventricular tachycardia; K21.9 Gastro-esophageal reflux disease without esophagitis; Z86.73 Personal history of transient ischemic attack (TIA), and cerebral infarction without residual deficits; F32.9 Major depressive disorder, single episode, unspecified; H91.90 Unspecified hearing loss, unspecified ear; Z87.891 Personal history of nicotine dependence; Z79.82 Long term (current) use of aspirin; Z79.899 Other long term (current) drug therapy; Z83.3 Family history of diabetes mellitus; F10.11 Alcohol abuse, in remission; N40.0 Benign prostatic hyperplasia without lower urinary tract symptoms; G89.29 Other chronic pain; M54.5 Low back pain
CPT/HCPCS: 97116; 97162; 64448; 76942; 84132; 85025; 88300; 73560; 27447; C1713; C1776; J2250; J0171; J1100; J2710; J0690 ×3; J2405; J3010; J1885; J2795 ×2; J2370; J0330; J2704; J0735; J1170

== ENCOUNTER → 2019-08-03 | Outpatient (CLI) | payer MEDICARE ==
[2019-08-03 12:32] LABS: HCT 42.1 % (39.0-53.0); HGB 13.6 gm/dL (13.0-17.5); MCH 34.3 pg (25.0-35.0); MCHC 32.2 g/dL (31.0-37.0); MCV 106.5 fL (80.0-100.0); Macrocytosis Moderate; Mean Platelet Volume 7.7; Platelet Count 182 k/uL (150-450); RBC 3.96 m/uL (4.30-5.90); RDW 13.4 % (11.5-15.5); WBC 7.3 k/uL (3.8-10.6)
[2019-08-03 12:48] LABS: INR 0.9 (<1.2); Partial Thromboplastin Time 23.1 sec (22.0-30.0); Prothrombin Time 9.8 sec (9.0-12.0)
[2019-08-03 12:49] LABS: Albumin 4.2 g/dL (3.5-5.0); Calcium 9.5 mg/dL (8.4-10.2); Potassium 4.8 mmol/L (3.5-5.1); Total Bilirubin 0.7 mg/dL (0.2-1.3); Total Protein 7.6 g/dL (6.3-8.2)
[2019-08-03 12:53] LABS: Appearance,Urine Clear (Clear); Bilirubin,Urine Negative (Negative); Blood,Urine Negative (Negative); Color,Urine Yellow; Glucose,Urine (UA) Negative (Negative); Ketones,Urine Negative (Negative); Leukocyte Esterase,Urine Negative (Negative); Nitrite,Urine Negative (Negative); Protein,Urine Negative (Negative); Specific Gravity,Urine 1.019 (1.001-1.035); Urobilinogen,Urine <2.0 mg/dL (<2.0)
== END | disposition home or self-care (01) ==
LOC: LABPAT 11:31
PROVIDERS: ATTEND Orthopaedic Surgery
DX: Z01.818 Encounter for other preprocedural examination (principal); Z01.812 Encounter for preprocedural laboratory examination; Z51.81 Encounter for therapeutic drug level monitoring; Z79.01 Long term (current) use of anticoagulants
CPT/HCPCS: 36415; 80053; 81003; 85027; 85610; 85730; 87070

== ENCOUNTER 2019-08-30 05:51 | Day surgery (SDC) | payer MEDICARE ==
[2019-08-26 10:51] VITALS: BMI 24.7
[~2019-08-30 05:51] MED LIST changes: +GABAPENTIN 300 MG CAP PO ONE; +HYDROmorphone 0.5 MG/0.5 ML SYRINGE IVP PRN; +LIDOCAINE 1% (10MG/ML) FOR IV START INTRADERMA PRN; -MIDAZOLAM 2 MG/2 ML VIAL IV PRN
[2019-08-30] MEDS ORDERED: ROPIVACAINE 246.25 MG, EPINEPHrine 0.5 MG, KETOROLAC 30 MG, cloNIDine HCL/PF 80 MCG, WA... MISCELLANE ONE ×5 (06:00)
[2019-08-30] MEDS ORDERED: ACETAMINOPHEN TAB 500 MG TAB ONE (06:13)
[2019-08-30] MEDS ORDERED: ONDANSETRON 4 MG/2 ML VIAL ONE (06:13)
[2019-08-30] MEDS ORDERED: fentaNYL (PF) 50 MCG/ML 2 ML AMP IV ONE (06:45)
[2019-08-30] MEDS ORDERED: MIDAZOLAM 2 MG/2 ML VIAL IV ONE (06:45)
[2019-08-30] MEDS ORDERED: ROPIVACAINE 0.2%-NS ON-Q PUMP 1,090 MG, EMPTY PAIN BALL 1 EACH MISCELLANE PRN (07:09)
[2019-08-30] MEDS ORDERED: MIDAZOLAM 2 MG/2 ML VIAL ONE (07:38)
[2019-08-30] MEDS ORDERED: TRANEXAMIC ACID 1,000 MG/10 ML VIAL ONE (07:38)
[2019-08-30] MEDS ORDERED: SODIUM CHLORIDE 0.9% 100 ML BAG ONE (07:38)
[2019-08-30] MEDS ORDERED: PROPOFOL 10 MG/ML 20 ML VIAL IV ONE (07:38)
[2019-08-30] MEDS ORDERED: fentaNYL (PF) 50 MCG/ML 2 ML AMP ONE (07:38)
[2019-08-30] MEDS ORDERED: ceFAZolin 1,000 MG VIAL IVPB ONE (07:40)
--- NOTE | 2019-08-30 09:39 | P.OP ---
Date of Procedure: 08/30/19 Procedure(s) Performed: PREOPERATIVE DIAGNOSIS: Left knee severe osteoarthritis with genu varum POSTOPERATIVE DIAGNOSIS: Left knee severe osteoarthritis with genu varum OPERATION: Left knee cemented total replacement arthroplasty. ANESTHESIA: Spinal ESTIMATED BLOOD LOSS: 50 ml. FORENSIC SCIENTIST: Gerri Reed PA-C (assistance with: patient positioning, retraction, exposure, hemostasis, leg positioning, implantation, irrigation, closure, dressing) COMPLICATIONS: None apparent. COMPONENTS IMPLANTED: Journey II total knee system from [employer] INDICATIONS: Kota is a 74-year-old male with a history of left knee osteoarthritis. The patient's knee is end-stage, and conservative management has failed. He has already successfully undergone replacement of his right knee within the past year. The operation of left knee replacement has been discussed at length in the office, as well as potential risks and complications. These are inclusive of, but not limited to: bleeding, infection, scarring, discomfort, blood vessel and nerve damage, need for further surgery, failure to relieve symptoms, persistence, recurrence, or worsening of problems, loosening, dislocation, wear, blood clot, pulmonary embolism, , gait dysfunction, stiffness, and other risks as discussed in the office. The patient elects to proceed and the consent form has been signed. PROCEDURE: The patient was taken to the operating room and positioned on the operating room table in the supine position. Anesthesia was initiated. Care was taken to make sure that all pressure points were adequately padded. The operative lower extremity was prepped and draped in the usual aseptic fashion using ChloraPrep. Ioban drape was used for the case and the patient received intravenous antibiotics within one hour of the incision. A pneumotourniquet and leg aviles were used for the case. The limb was exsanguinated with an Esmarch bandage and the tourniquet was inflated to 350 mmHg. Time-out was called confirming the patient's identity, side, procedure and administration of antibiotics and tranexamic acid. The incision was then created midline directly over the left knee, carried down through skin and into the subcutaneous tissues and down to fascia. Full thickness subcutaneous medial flap was developed. Medial parapatellar arthrotomy was performed and the interior of the knee was inspected. There was end-stage osteoarthritis of the knee with a mild to moderate genu varum type deformity. The fat pad was excised and proximal medial release on the tibia was completed using meticulous dissection and a curved osteotome. The anterior cruciate ligament was taken down. Note was made of significant attrition of the anterior and significant degenerative appearance of the cruciate ligaments. The exposure was excellent. The knee was flexed 90 degrees and the patella was everted. The [employer] pre- made distal cutting block was attached and pinned into position. The planned cut was analyzed visually and with the alignment daryl and found to be satisfactory without the need for any adjustment. The oscillating saw was then used to make the distal femoral cut and make the alignment holes for the 5 in 1 block. This cut was confirmed to be flat with the flat end of an osteotome. The 5 in 1 block was then used to create the anterior posterior condylar resections and the chamfer cuts. The retractors were placed around the tibia and the tibial surface was addressed. The [employer] pre-made guide was placed onto the exposed tibial surface and pinned into position to blade the rotational alignment. The alignment of the guide was checked for depth of plannned resection, slope, and varus valgus. Guide was confirmed to be in good position and the tibial cut was then created with protection of the posterior neurovascular structures and the collateral ligaments. The tibial cut surface was removed and sized. Spacer block technique was then used to confirm that the flexion and extension gaps were equal. Soft tissue releases and adjustment of the tibial and/or femoral cuts were made, as necessary, until the gaps were equal. This included release of the posterior cruciate ligament, which was excessively tight in this patient. Prior to placing trial components, anesthetic solution consisting of ropivicaine with epinephrine, ketorolac, and clonidine was injected carefully and methodically in a grid pattern using aspiration technique into the soft tissue around the knee circumferentially, starting with the deeper tissues first and progressing to fascia, and then finally the skin/subcutaneous tissue. Particular care was taken when injecting the posterior capsule, with avoidance of the midline posterior area. The trial components were inserted. The tibial tray was allowed to self center and the patella was noted to track very well. The position of the tibial compo nent was marked and noted to be nearly exactly aligned with the pre-drilled holes from the [employer] guide. The tibia was then finished for a stemmed tibial component. Patellar resurfacing was performed using a reamer. The size of the required patellar component was estimated and the patellar surface was then reamed down to a residual thickness which would recreate the ty[place]k thickness with the component. The exact placement of the patellar component was adjusted for position based on preoperative x-rays and intraoperative findings. Trial components were removed and the cut surfaces of the bone were pulse lavaged thoroughly and dried. Cement was mixed on the back table and applied to the final components. Cement was then applied to the tibial surface and pressurized into the surface using finger pressurization technique. The tibial component was then applied and excess cement was removed after it was impacted securely and noted to be flush with the cut surface. In similar fashion, the cement was applied to the cut femoral surface, pressurized in using finger pressurization and the component was impacted into place. Excess cement was removed. The polyethylene spacer was then implanted and locked into position. The patellar component was then applied in similar technique and a patellar clamp was used to hold the patella in place as the cement hardened. Once the cement had fully hardened, the knee was reinspected. Any other cement extrusion was removed and final kinematic testing showed range of motion from 0 to 130 degrees with excellent stability, both medially and laterally and appropriate alignment of the leg. Patellar tracking was excellent. The knee was then thoroughly pulse lavaged with normal saline. The tourniquet was deflated and hemostasis was obtained with electrocautery and IV tranexamic acid, 1 g given at the start of the operation and 1 g at the start of closure. Closure was with #2 Ethibond in the fascia/capsule and supplemented with #2 Qu ill, 2-0 Vicryl suture was used for the subcutaneous tissues and 3-0 Quill for the skin. Dermabond/Steri-Strips were then applied. A lightly compressive dressing was applied using Webril and an Srinivas wrap. The [facility] was [facility] and taken to the recovery room in stable
[2019-08-30] MEDS ORDERED: bisacodyL 10 MG SUPP RECTAL PRN (09:51)
[2019-08-30] MEDS ORDERED: HYDROmorphone 0.5 MG/0.5 ML SYRINGE IVP PRN ×3 (09:51)
[2019-08-30] MEDS ORDERED: MAGNESIUM HYDROXIDE 2,400 MG/10 ML CUP PO PRN (09:51)
[2019-08-30] MEDS ORDERED: NALOXONE 0.4 MG/ML 1 ML VIAL IV PRN (09:51)
[2019-08-30] MEDS ORDERED: HYDROcodone/APAP 5-325MG 1 EACH TAB PO PRN ×2 (09:51)
[2019-08-30] MEDS ORDERED: NA PHOS,M-B/NA PHOS,DI-BA 133 ML ENEMA RECTAL PRN (09:51)
--- NOTE | 2019-08-30 09:59 | P.ANPRN ---
Procedure Note - Anesthesia - Nerve Block Performed Left Adductor Canal Infusion Time Out Performed: Yes Date of Procedure: 08/30/19 Procedure Start Time: 06:40 Procedure Stop Time: 06:48 Location of Patient: PreOp Indication: Requested by Surgeon Specifically requested for management of pain by DrAnita: Gustavo Salinas Sedation Type: Sedate with meaningful contact maintained Preparation: Sterile Prep, Sterile Dressing Position: Supine Catheter: Indwelling Needle Types: Pajunk Needle Gauge: 18 Ultrasound used to visualize needle placement: Yes Ultrasound used to observe medication spread: Yes Injectate: 0.5% Ropivacaine (see comment for volume) (20 ml) Blood Aspirated: No Pain Paresthesia on Injection Noted: No Resistance on Injection: Normal Image Stored and Saved: Yes Events: Uneventful and Well Tolerated
[2019-08-30] MEDS ORDERED: LACTATED RINGERS 1,000 ML IV SCH (10:00)
[2019-08-30] MEDS ORDERED: LACTATED RINGERS 1,000 ML IV ONE ×2 (10:21)
[2019-08-30 15:26] VITALS: BP 113/74; PULSE 86; RESP 19; TEMP 98.4
[2019-08-30] MEDS ORDERED: ASPIRIN 81 MG PO SCH (21:00)
[2019-08-30] MEDS ORDERED: SENNOSIDES-DOCUSATE SODIUM 1 EACH TAB PO SCH (21:00)
[2019-08-31] MEDS ORDERED: MELOXICAM 7.5 MG TAB PO SCH (09:00)
--- NOTE | 2019-08-31 14:32 | XR ---
EXAMINATION TYPE: XR knee limited LT DATE OF EXAM: 08/30/2019 CLINICAL HISTORY: Right knee pain and arthritis status post total knee replacement. TECHNIQUE: Portable AP and crosstable lateral views of the left knee are obtained immediately postop eratively. COMPARISON: None FINDINGS: Metallic hardware from total left knee arthroplasty is seen and appears satisfactory in al ignment and position. There is evidence of recent surgery with diffuse subcutaneous gas and cutaneou s irregularity. No unexpected radiopaque foreign body. IMPRESSION: METALLIC HARDWARE FROM TOTAL LEFT KNEE ARTHROPLASTY IS SATISFACTORY IN ALIGNMENT.
== END 2019-08-30 15:53 | disposition home health service (06) ==
LOC: OR 05:51 → 4SSUR 09:51 → OR 15:53
PROVIDERS: ATTEND Orthopaedic Surgery
DX: M17.12 Unilateral primary osteoarthritis, left knee (principal); M21.162 Varus deformity, not elsewhere classified, left knee; F41.9 Anxiety disorder, unspecified; F32.9 Major depressive disorder, single episode, unspecified; G62.9 Polyneuropathy, unspecified; H91.90 Unspecified hearing loss, unspecified ear; K21.9 Gastro-esophageal reflux disease without esophagitis; Z79.82 Long term (current) use of aspirin; Z79.899 Other long term (current) drug therapy; Z98.1 Arthrodesis status; Z96.651 Presence of right artificial knee joint; Z87.891 Personal history of nicotine dependence; Z98.49 Cataract extraction status, unspecified eye; Z98.890 Other specified postprocedural states; Z83.3 Family history of diabetes mellitus; Z82.49 Family history of ischemic heart disease and other diseases of the circulatory system
CPT/HCPCS: 97116; 97162; 64448; 76942; 88300; 73560; 27447; C1713; C1776; J2250; J1100; J2405; J0690; J3010; J2704

== ENCOUNTER → 2019-11-11 | Outpatient (CLI) | payer MEDICARE ==
--- NOTE | 2019-11-11 22:31 | MR ---
EXAMINATION TYPE: MR brain wo/w con DATE OF EXAM: 11/11/2019 COMPARISON: 06/05/2017 HISTORY: Double Vision, Dizziness and Bilateral Hearing Loss. CONTRAST: Performed utilizing 7 mL intravenous Gadavist gadolinium contrast. TECHNIQUE: Multiplanar, multiecho imaging on a 3.0 Lisseth magnet is performed through the brain. Stud y is performed within 24 hours of arrival to the hospital. The craniovertebral junction is normal. The pituitary is normal. Diffusion-weighted imaging is performed. No abnormal hyperintensity is present to suggest an acute i ntracranial infarct or acute ischemic change. Periventricular white matter hyperintensity is present, likely on the basis of chronic white matter i schemic changes. This includes centrum semiovale, periventricular white matter, snow radiata and ex tending into the posterior occipital lobes. Distribution is stable from 2018. Old infarct in the left occipital lobe is not excluded. This area is stable from comparison. Ventricles and sulci are prominent for the patient age. No abnormal enhancement is evident. The nonenhancing soft tissue area of the C2 level is stable from comparison. IMPRESSIONS: 1. Diffuse white matter changes discussed above. Findings and distribution appears stable from the comparison.
== END | disposition home or self-care (01) ==
LOC: RADMRIMAIN 08:38
PROVIDERS: ATTEND Ophthalmology
DX: H49.21 Sixth [abducent] nerve palsy, right eye (principal); R90.82 White matter disease, unspecified
CPT/HCPCS: 70553; A9585

== ENCOUNTER → 2020-12-21 | Outpatient (CLI) | payer MEDICARE ==
--- NOTE | 2020-12-21 14:28 | XR ---
EXAMINATION TYPE: XR chest 2V DATE OF EXAM: 12/21/2020 COMPARISON: NONE TECHNIQUE: PA and lateral views submitted. HISTORY: A surgical FINDINGS: The lungs are clear and there is no pneumothorax, pleural effusion, or focal pneumonia. Calcified gr anuloma right upper lobe. Postsurgical change overlying the cervical spine. Heart size normal. Hyperi nflation suggests COPD. Hypertrophic and degenerative change. Surgical change involving the upper lum bar spine. Right upper lobe. IMPRESSION: 1. No acute process. Correlate for COPD.
== END | disposition home or self-care (01) ==
LOC: RADXRMAIN 13:53
PROVIDERS: ATTEND Internal Medicine Geriatric Medicine
DX: J84.10 Pulmonary fibrosis, unspecified (principal)
CPT/HCPCS: 71046

== ENCOUNTER → 2023-11-19 | Outpatient (CLI) | payer MEDICARE ==
[~2023-11-19] MED LIST changes: -ACETAMINOPHEN TAB 500 MG TAB PO ONE; -DEXAMETHASONE SOD PHOSPHATE 10 MG/ML 1 ML VIAL IV ONE; -GABAPENTIN 300 MG CAP PO ONE; -HYDROmorphone 0.5 MG/0.5 ML SYRINGE IVP PRN; +IODINE/POTASSIUM IODIDE 14 ML BOTTLE ONE; -LACTATED RINGERS 1,000 ML IV SCH; -LIDOCAINE 1% (10MG/ML) FOR IV START INTRADERMA PRN; -MELOXICAM 7.5 MG TAB PO ONE; -ONDANSETRON 4 MG/2 ML VIAL IVP ONE; -TRANEXAMIC ACID 1,000 MG in SODIUM CHLORIDE 0.9% 100 ML IVPB ONE
--- NOTE | 2023-11-20 11:05 | NM ---
EXAMINATION TYPE: NM DatScan Brain SPECT DATE OF EXAM: 11/19/2023 COMPARISON: NONE CLINICAL INDICATION: Male, 78 years old with history of G20.C PARKINSONISM, UNSPECIFIED; TECHNIQUE: 10 drops of Lugol's solution was administered 1 hour prior to injection as a thyroid bloc claude agent. After the administration of 4.51 mCi I-123 Ioflupane DaTscan. Images obtained 3 hours p ost injection. SPECT images of the brain were acquired with axial and coronal reconstructions. FINDINGS: There is markedly diminished uptake within the left corpus striatum and diffuse increased background activity. IMPRESSION: Abnormal scintigraphic findings which can be seen in the setting of Parkinson's disease or a parkinso nian syndrome. [facility], , 11/20/2023 11:03 AM
== END | disposition home or self-care (01) ==
LOC: RADNMMAIN 10:27
PROVIDERS: ATTEND Internal Medicine Geriatric Medicine
DX: G20.C Parkinsonism, unspecified (principal)
CPT/HCPCS: 78803